=== PATIENT | male | born 1965 | race Caucasian/White ===

== ENCOUNTER 2019-02-13 12:06 | Emergency (ER) | payer BC, SELFPAY ==
[2019-02-13 12:07] VITALS: BP 111/70; PULSE 85; RESP 16; TEMP 36.1; O2SAT 100; BMI 31.1
--- NOTE | 2019-02-13 12:39 | EKG12_ITS ---
Test Reason : ABD PAIN Blood Pressure : / mmHG Vent. Rate : 073 BPM Atrial Rate : 073 BPM P-R Int : 164 ms QRS Dur : 086 ms QT Int : 378 ms P-R-T Axes : 062 -41 033 degrees QTc Int : 416 ms Normal sinus rhythm Left axis deviation Abnormal ECG Confirmed by HERB DELEON, SOTO ([id number]), greeting card editor MEE WETZEL ([id number]) on 02/16/2019 11:45:22 AM Referred By: BB Confirmed By:SOTO ESTEVEZ MD
--- NOTE | 2019-02-13 12:40 | CT_ITS ---
STUDY: CTA ABDOMEN AND PELVIS WITH CONTRAST REASON FOR EXAM: Male, 53 years old. Right-sided back pain. RADIATION DOSAGE (If Supplied By Facility): CTDIvol = ( 12.19 ) mGy, DLP = ( 219.42 ) mGycm TECHNIQUE: Transaxial images were obtained from the dome of the diaphragm to the symphysis pubis without oral contrast. 100CC IV Isovue 300 was administered. Sagittal and coronal images were reconstructed. Individualized dose optimization techniques were used for this CT. COMPARISON: None. FINDINGS: Normal abdominal aorta and branches. There is no aneurysm or dissection. There is right lower lung scarring or atelectasis with pleural calcification. The visualized portions of the heart are within normal limits. There is hepatomegaly with diffuse hepatic enlargement. Normal gallbladder and extrahepatic biliary system. Normal spleen. Normal pancreas. Normal bilateral adrenal glands. Normal right kidney. Normal left kidney. Normal visualized stomach. Normal small intestine. Normal colon. There is moderate stool. The appendix is visualized and appears normal. Normal inferior vena cava. Normal retroperitoneum. Normal urinary bladder. There are prostatic calcifications. There is a small umbilical hernia containing fat. There is degenerative and postoperative change of the spine. CT/CT ANGIO ABD&PEL W/O&W/DYE IMPRESSION: No aneurysm or dissection. No intra-abdominal mass or obstruction. Degenerative change of the spine. Electronically Signed: Harley Bermeo MD at 13:56 EDT , Service support ,
[2019-02-13 12:45] LABS: Red Blood Cells-Urine 0 SEEN /hpf (0-5)
--- NOTE | 2019-02-13 12:45 | RAD_ITS ---
STUDY: X-RAY CHEST REASON FOR EXAM: Male, 53 years old. Pain. TECHNIQUE: Single AP portable view of the chest. COMPARISON: None. FINDINGS: The lungs are clear and expanded. There is no demonstrated pleural abnormality. Normal size heart. Normal mediastinum and charlene. Normal visualized pulmonary arteries. Normal visualized aortic arch and descending thoracic aorta. There are diffuse degenerative changes of the visualized thoracic spine. Postoperative changes of the cervical spine. Normal visualized ribs, clavicles, and shoulders. There is no demonstrated abnormality of the visualized soft tissue structures of the upper abdomen. RAD/Chest 1 View (Portable) IMPRESSION: Degenerative changes, as described above. No demonstrated acute cardiopulmonary process. Electronically Signed: Harley Bermeo MD at 13:14 EDT , Service support ,
[2019-02-13 12:46] LABS: Color, Urine Yellow (Yellow); Glucose, Dipstick Normal (Normal); Leukocyte Esterase-Dipstick 25 /ul (Negative); Nitrite-Dipstick Negative (Negative); Occult Blood-Urine 25 /ul (Negative); Protein-Dipstick 15 mg/dl (Negative); Urine Bilirubin Dipstick Negative (Negative); Urine Clarity Clear (Clear); Urine Urobilinogen 1 mg/dl (Normal)
[2019-02-13 12:47] LABS: Absolute Lymphocyte Count 1.39 X10^3/uL (0.83-4.51); Absolute Neutrophil Count 6.5 X10^3/uL (2.0-7.7); Basophil# 0.01 X10^3/uL; Basophil% 0.1 % (0-1); Eosinophil# 0.02 X10^3/uL; Eosinophils% 0.2 % (0-5); Hematocrit 44.3 % (40-54); Hemoglobin 15.2 g/dL (13.0-16.5); Lymphocyte # 1.39 X10^3/ul (4.0); Lymphocyte % 15.4 % (19-41); Mean Corp Hgb Conc 34.3 g/dL (32-36); Mean Corpuscular Hgb 31.4 pg (27.0-32.0); Mean Corpuscular Volume 91.5 fL (80-94); Mean Platelet Vol. 8.4 fl (6.2-12.0); Monocyte# 1.05 X10^3/uL; Monocyte% 11.6 % (0-10); NRBC Flagged by Analyzer 0 % (0-5); Neutrophil # 6.54 X10^3/uL (2.7-7.7); Neutrophil % 72.5 % (47-70); Platelet Count 323 K/mm3 (150-450); RBC Distribution Width CV 11.9 % (11.6-14.6); RBC Distribution Width SD 39.8 fl (35.1-43.9); Red Blood Count 4.84 M/mm3 (4.6-6.2)
[2019-02-13 12:50] LABS: Ketone-Dipstick 150 mg/dl (Negative)
--- NOTE | 2019-02-13 12:51 | ED.DCSUM_ITS ---
History of Present Illness Chief Complaint: Abd Pain Informant: Patient, Significant Other Onset: Days - 2-3 Context: Gradual Onset Timing: Continuous, Waxes and wanes Quality: Achy pain Location: See below Current Severity: Severe Maximum Severity: Severe Worsened by: deep inspiration makes left flank/back hurt more Relieved by: nothing Associated Symptoms: dark urine this AM only. no nausea/vomiting. no chest pain. Narrative: Patient had very gradual onset of all of the symptoms, have gotten much worse this morning, again gradually. He states couple days ago the pain started on his right flank. Now the pain is focused on the left flank. He feels bloated/distended and no nausea or vomiting. No history of abdominal surgeries. States he had discomfort like this before, he was seen in the ER and had testing done that was negative and was told may be you passed a kidney stone. That pain resolved after 2 days spontaneously. This is becoming much worse. He has had normal bowel movements, his last one was around 2 days ago which is not unusual for him. He was urinating normally until this morning, it was dark and he states it smelled foul but he did not have dysuria or frequency. He states now the pain is mostly in the left side of his abdomen, he is in severe pain, it seems colicky, but the right side still hurts as well. No known fevers. Poor oral intake over the last couple days. Past Medical History - Allergies and Home Meds Allergies/Adverse Reactions: Allergies No Known Allergies Allergy (Verified 02/13/19 12:07) Primary Care Physician: NOT,DEFINED [NON-STAFF] - Past Medical History: None Surgical History: - - back Lives: Spouse/ Significant Other Smoking Status: Never smoker Drugs: None Review of Systems General: Reports: Malaise. Denies: Chills, Fever, Sweats Eyes: Denies: Visual changes - bilaterally, Diplopia ENT: Denies: Rhinorrhea, Sore throat Cardiovascular: Denies: Chest pain, Palpitations Respiratory: Denies: Dyspnea, Cough, Dyspnea on exertion Gastrointestinal: Reports: Abdominal pain. Denies: Nausea, Vomiting, Diarrhea, Melena, Hematochezia Genitourinary: Denies: Dysuria, Hematuria, Frequency Musculoskeletal: Reports: Back pain. Denies: Neck pain, Swelling, Extremity Pain Skin: Denies: Rash, Wounds Neurological: Denies: Headache, Weakness, Numbness Physical Exam Vital Signs/Narrative: Vital Signs Temp Pulse Resp BP Pulse Ox 02/13/19 12:07 97 F L 85 16 111/70 100 Inital Vital Signs reviewed: Yes General: Well nourished, Well developed, Acute Distress - in pain. doesn't want to lie down due to severe discomfort. Head: Normocephalic, Atraumatic Eyes: Perrl, EOMI ENT: Moist mucous membranes, No rhinorrhea Neck: Supple, Nontender Cardiovascular: Regular rate, Regular rhythm, No murmurs Respiratory: No distress, CTA bilaterally, Chest nontender Abdomen: Soft, Nontender, Hypoactive bowel sounds. Negative for: Nondistended - +mildly distended, Pulsatile mass Back: Normal Inspection, CVA tenderness - left only; no other tenderness Extremities: Nontender, No edema Skin: Normal color, No rash, No Trauma Neurological: Alert, Oriented x3, Cranial nerves II-XII grossly intact, Normal Strength, Normal Sensation Psychological: Normal Mood, - - anxious Diagnostic/Tx/Re-eval Impressions Abdomen/Pelvis CTA 02/13/19 12:40 IMPRESSION: No aneurysm or dissection. No intra-abdominal mass or obstruction. Degenerative change of the spine. Electronically Signed: Harley Bermeo MD at 13:56 EDT , Service support , Chest X-Ray 02/13/19 12:45 IMPRESSION: Degenerative changes, as described above. No demonstrated acute cardiopulmonary process. Electronically Signed: Harley Bermeo MD at 13:14 EDT , Service support , 02/13/19 12:40 CT ANGIO ABD&PEL W/O&W/DYE [CT] Stat 02/13/19 12:45 Chest 1 View (Portable) [RAD] Stat Laboratory Results 02/13/19 02/13/19 02/13/19 12:30 12:30 12:30 WBC 9.0 RBC 4.84 Hgb 15.2 Hct 44.3 MCV 91.5 MCH 31.4 MCHC 34.3 RDW Std Deviation 39.8 RDW Coeff of Devang 11.9 Plt Count 323 MPV 8.4 Immature Gran % (Auto) 0.200 Neut % (Auto) 72.5 H Lymph % (Auto) 15.4 L Summers % (Auto) 11.6 H Eos % (Auto) 0.2 Baso % (Auto) 0.1 Absolute Neuts (auto) 6.5 Absolute Lymphs (auto) 1.39 Nucleated RBC % 0 Sodium 136 Potassium 3.8 Chloride 102 Carbon Dioxide 25.0 Anion Gap 9 BUN 14 Creatinine 0.99 Estim Creat Clear Calc 93.63 Est GFR (MDRD) Af Amer 101 Est GFR (MDRD) Non-Af 83 BUN/Creatinine Ratio 14.1 Glucose 101 Lactic Acid Calcium 9.6 Total Bilirubin 0.80 AST 23 ALT 23 Alkaline Phosphatase 56 Troponin I < 0.015 Total Protein 8.8 H Albumin 3.6 Globulin 5.2 H Albumin/Globulin Ratio 0.7 L Lipase 53 L Urine Color Yellow Urine Clarity Clear Urine pH 8.0 Ur Specific [place] 1.010 Urine Protein 15 H Urine Glucose (UA) Normal Urine Ketones 150 H Urine Occult Blood 25 H Urine Nitrite Negative Urine Bilirubin Negative Urine Urobilinogen 1 H Ur Leukocyte Esterase 25 H Urine RBC 0 SEEN Urine WBC 0-5 SEEN Ur Squamous Epith Cells 0-5 SEEN Urine Bacteria 1+ Urine Mucus 1+ 02/13/19 13:12 WBC RBC Hgb Hct MCV MCH MCHC RDW Std Deviation RDW Coeff of Devang Plt Count MPV Immature Gran % (Auto) Neut % (Auto) Lymph % (Auto) Summers % (Auto) Eos % (Auto) Baso % (Auto) Absolute Neuts (auto) Absolute Lymphs (auto) Nucleated RBC % Sodium Potassium Chloride Carbon Dioxide Anion Gap BUN Creatinine Estim Creat Clear Calc Est GFR (MDRD) Af Amer Est GFR (MDRD) Non-Af BUN/Creatinine Ratio Glucose Lactic Acid 1.8 Calcium Total Bilirubin AST ALT Alkaline Phosphatase Troponin I Total Protein Albumin Globulin Albumin/Globulin Ratio Lipase Urine Color Urine Clarity Urine pH Ur Specific [place] Urine Protein Urine Glucose (UA) Urine Ketones Urine Occult Blood Urine Nitrite Urine Bilirubin Urine Urobilinogen Ur Leukocyte Esterase Urine RBC Urine WBC Ur Squamous Epith Cells Urine Bacteria Urine Mucus - Rhythm Strip Rhythm Strip: Sinus Rhythm Rate: 75 Ectopy: None - EKG Initial EKG Interpretation: Sinus Rhythm, No Acute Injury Pattern, - - Left axis Prior: No Prior - Medical Decision Making Patient was extremely uncomfortable. Differential included kidney stone, mesenteric ischemia given his benign abdominal exam, bowel obstruction, and other causes of intestinal pain. The work-up is very unremarkable but he is very uncomfortable. I discussed with the radiologist, and we reviewed his imaging in more detail. It does not appear he has any signs of hydroureter or hydronephrosis, and although contrast was used, no obvious uroliths. It does appear, however, that his colon is full of stool, which of course is not necessarily abnormal. However, I think that is what is causing his pain. In further questioning and discussion with the patient at length, he initially stated that having his last bowel movement 2 or 3 days ago is not necessarily unusual for him, but clarification shows that he usually goes daily like clockwork but he has gone 2 or 3 days without them in the past. I think he is having colonic spasms causing his pain in his back, bloating in his abdomen, and trouble taking a deep breath as a result. Furthermore, he has no symptoms of discomfort radiating down his legs to suggest a cord process. We discussed an enema. He attempted to have a bowel movement on his own first, he was unable, but states that he feels like he needs to go, but cannot. He was amenable to an enema. This did enable him to get some stool out, and he definitely felt a difference. Therefore I suggest further constipation treatments. He does not want more enemas here and is comfortable going home although he is still having some pain. He was given Bentyl and half bottle of magnesium citrate prior to discharge, along with the rest of the bottle, encouragement to drink plenty fluids, and use Colace and MiraLAX, enemas prn. They are comfortable with this overall plan of follow-up, encouraged to return if worse. ED Disposition - Plan for ED Patient: Disposition: Home or Assisted Living Diagnosis: Constipation, Back pain Instructions: CONSTIPATION (Adult) Prescriptions: Dicyclomine HCl [Bentyl] 10 - 20 mg PO Q6H PRN #20 cap PRN Reason: Abdominal cramping Prescription Printed Referrals: Doctor,Your [STAFF PHYSICIAN] - 3-5 Days if not improving Additional Instructions: Use MiraLAX, 1 capful dissolved in any liquid daily, in addition to docusate sodium 100 mg capsule, 1 capsule twice daily for stool softening. Drink plenty of fluids. If the initial dose in the ER of magnesium citrate does not result in a bowel movement within 12-24 hours, you may repeat 24 hours after the first dose.
[2019-02-13 12:58] LABS: Bacteria 1+ /hpf (None Seen); Mucous, Urine 1+ /hpf (<or=2+); Squamous Epithelial Cells - UA 0-5 SEEN /hpf (0-5); White Blood Cells 0-5 SEEN /hpf (0-5)
[2019-02-13 13:01] LABS: ALB/GLOB Ratio 0.7 RATIO (0.9-2.4); AST(SGOT) 23 U/L (15-37); Alanine Aminotransfer ALT/SGPT 23 U/L (16-61); Albumin, Serum 3.6 g/dL (3.2-5.0); Alkaline Phosphatase 56 U/L (45-117); Anion Gap 9 (5-15); BUN 14 mg/dL (7-18); BUN/Creat Ratio 14.1 RATIO (10-20); Calcium,Total 9.6 mg/dL (8.5-10.1); Chloride 102 mmol/L (98-107); Creatinine, Serum 0.99 mg/dL (0.70-1.30); EST Glomerular Filtration Rate 83 mL/min (>60); Est Glom Filt Rate - Afr Amer 101 mL/min (>60); Estimated Creatinine Clearance 93.63 ml/min; Globulin 5.2 g/dL (2.2-4.2); Glucose 101 mg/dL (74-106); Lipase 53 U/L (73-393); Potassium 3.8 mmol/L (3.5-5.1); Protein, Total 8.8 g/dL (6.4-8.2); Sodium Level 136 mmol/L (136-145)
[2019-02-13] MEDS: Morphine 4 MG/ML Syringe IV (13:01)
[2019-02-13] MEDS: Ketorolac 15 MG/ML Vial IV (13:01)
[2019-02-13 13:44] LABS: Lactic Acid 1.8 mmol/L (0.4-2.0)
[2019-02-13] MEDS: HYDROmorphone 1 MG/ML Syringe IV (14:03)
[2019-02-13 14:05] VITALS: BP 119/70; PULSE 76; RESP 22; O2SAT 100
[2019-02-13] MEDS: Fleet Enema 1 ML RECTAL (15:15)
[2019-02-13] MEDS: Dicyclomine 10 MG Capsule 20 MG PO (16:42)
[2019-02-13] MEDS: Magnesium Citrate 300 ML 150 ML PO (16:42)
[2019-02-13 16:54] VITALS: PULSE 74; RESP 17; O2SAT 100
== END 2019-02-13 16:56 | disposition home or self-care (01) ==
PROVIDERS: Emergency Provider Emergency Medicine
DX: K59.00 Constipation, unspecified (principal); M54.9 Dorsalgia, unspecified
CPT/HCPCS: 71045; 74174; 80053; 81001; 83605; 83690; 84484; 85025; 93005; 96361; 96374; 96375; 99285; J7030; Q9967; A4216

== ENCOUNTER → 2019-03-17 09:27 | Outpatient (CLI) | payer BC, SELFPAY ==
[2019-03-17 08:31] VITALS: BMI 31.3
[2019-03-17 12:59] LABS: Cholesterol 209 mg/dL (200); High Density Lipoprotein 67 mg/dL; PSA,Total - Annual Screen 1.01 ng/mL (0.00-4.00); Triglycerides 60 mg/dL; Very Low Density Lipoprotein 12 mg/dL (5-40)
== END ==
PROVIDERS: PCP Internal Medicine; Visit Provider Internal Medicine
DX: Z00.00 Encounter for general adult medical examination without abnormal findings (principal)
CPT/HCPCS: 36415; 80061; 84153; G0103

== ENCOUNTER → 2020-05-31 10:28 | Outpatient (CLI) | payer BC, SELFPAY ==
[2020-05-31 09:35] VITALS: BMI 30.2
[2020-05-31 12:12] LABS: Absolute Lymphocyte Count 1.21 X10^3/uL (0.83-4.51); Basophil# 0.03 X10^3/uL; Basophil% 0.5 % (0-1); Eosinophil# 0.09 X10^3/uL; Eosinophils% 1.5 % (0-5); Hematocrit 53.2 % (40-54); Hemoglobin 17.4 g/dL (13.0-16.5); Lymphocyte # 1.21 X10^3/ul (4.0); Lymphocyte % 19.8 % (19-41); Mean Corp Hgb Conc 32.7 g/dL (32-36); Mean Corpuscular Hgb 30.2 pg (27.0-32.0); Mean Corpuscular Volume 92.4 fL (80-94); Mean Platelet Vol. 8.6 fl (6.2-12.0); Monocyte# 0.77 X10^3/uL; Monocyte% 12.6 % (0-10); NRBC Flagged by Analyzer 0 % (0-5); Neutrophil # 3.99 X10^3/uL (2.7-7.7); Neutrophil % 65.4 % (47-70); Platelet Count 292 K/mm3 (150-450); RBC Distribution Width CV 13.2 % (11.6-14.6); RBC Distribution Width SD 44.7 fl (35.1-43.9); Red Blood Count 5.76 M/mm3 (4.6-6.2); White Blood Count 6.1 K/mm3 (4.4-11.0)
[2020-05-31 12:41] LABS: ALB/GLOB Ratio 0.9 RATIO (0.9-2.4); AST(SGOT) 25 U/L (15-37); Alanine Aminotransfer ALT/SGPT 33 U/L (16-61); Albumin, Serum 3.7 g/dL (3.2-5.0); Alkaline Phosphatase 49 U/L (45-117); Anion Gap 6 (5-15); BUN 11 mg/dL (7-18); BUN/Creat Ratio 12.3 RATIO (10-20); Chloride 104 mmol/L (98-107); Cholesterol 206 mg/dL (200); Creatinine, Serum 0.89 mg/dL (0.70-1.30); EST Glomerular Filtration Rate 94 mL/min (>60); Est Glom Filt Rate - Afr Amer 113 mL/min (>60); Glucose 92 mg/dL (74-106); High Density Lipoprotein 55 mg/dL; Potassium 3.6 mmol/L (3.5-5.1); Protein, Total 7.7 g/dL (6.4-8.2); Sodium Level 137 mmol/L (136-145); Triglycerides 85 mg/dL; Very Low Density Lipoprotein 17 mg/dL (5-40)
== END ==
PROVIDERS: PCP Internal Medicine; Referring Provider Internal Medicine; Visit Provider Internal Medicine
DX: Z00.00 Encounter for general adult medical examination without abnormal findings (principal)
CPT/HCPCS: 36415; 80053; 80061; 85025

== ENCOUNTER → 2020-06-28 12:17 | Outpatient (CLI) | payer BC, SELFPAY ==
[2020-05-31 09:35] VITALS: BMI 30.2
[2020-06-28 15:20] LABS: Hematocrit 52.7 % (40-54); Hemoglobin 17.6 g/dL (13.0-16.5)
[2020-06-28 15:40] LABS: PSA,Total- Diagnostic 1.41 ng/mL (0.0-4.0)
== END ==
PROVIDERS: PCP Internal Medicine; Referring Provider Urology; Visit Provider Urology
DX: E29.1 Testicular hypofunction (principal); R35.1 Nocturia
CPT/HCPCS: 36415; 84153; 84403; 85014; 85018

== ENCOUNTER → 2025-06-14 | Outpatient (CLI) | payer BC, SELFPAY ==
--- NOTE | 2025-06-14 06:40 | MRI_ITS ---
PROCEDURE: SPINE LUMBAR W/WO CONTRAST 06/14/2025 REASON FOR EXAM: PAIN X 20YEARS, HX OF DISCECTOMY, LEFT RADICULOPATHY TECHNIQUE: Procedure Code: [id number] Modality: MR Procedure: SPINE LUMBAR W/WO CONTRAST Multiplanar and multisequence images were obtained without and with intravenous gadolinium-based contrast administration. CONTRAST: Clariscan VOLUME: 17 mL COMPARISON: April 08, 2025, May 17, 2025. MRI report unavailable for review. FINDINGS: Vertebrae: No fracture seen. Bone marrow edema is seen at the opposing endplates posteriorly at T12/L1, and the opposing endplates of L3 and L4. Fatty marrow changes and sclerosis is also seen at L3/4 and to a greater extent L4/5. Alignment: Straightened Conus Medullaris: Terminates at T12/L1. Normal signal. T12-L1: Diffuse disc protrusion is present and slightly more prominent left paracentral and left sub foraminal where there is an element of annular tearing. Mild thickening of ligamentum flavum and mild facet hypertrophy. Central canal at this level is borderline stenotic at 10 mm AP. Conus medullaris is at this level and there is partial effacement of the anterior thecal sac without compression of the conus, but scant CSF is present around the conus. Borderline exit foraminal narrowing on the left. Correlate with left T12 radiculopathy and any symptoms of cauda equina. L1-2: Mild thickening of ligamentum flavum. L2-3: Severe, diffuse disc bulge ispresent and also associated with a focal disc extrusion that is directed cephalad posterior to the L2 vertebral body; this is located centrally, left paracentrally and left sub foraminal. The disc measures 1.3 x 0.8 x 1.4 cm. This creates a significant extradural defect deforming the thecal sac posterior to the L2 vertebral body. The central canal at this level is stenotic to 5 mm AP. This has mass effect on the traversing nerve roots. Mild left facet hypertrophy. Moderate right facet hypertrophy. Bilateral facet joint effusions. Additionally, there is facet joint edema/synovitis on the right with some enhancement. The exiting left L2 nerve root on the left is minimally compromised by the hypertrophic facets. L3-4: Severe loss of disc height with disc desiccation. Diffuse disc osteophyte protrusion is mild. Moderate facet hypertrophy. Postsurgical changes. Central canal is not stenotic. Right exit foramen is narrowed from a combination of disc osteophyte and facet disease. Correlate with right L3 radiculopathy. L4-5: [id number] loss of disc height with disc desiccation. Diffuse disc osteophyte protrusion is seen at this level. [id number] facet hypertrophy. Central canal is not stenotic. Bilateral exit foramina are narrowed from a combination of disc osteophyte and facet disease. Correlate with bilateral L4 radiculopathy. Postsurgical change. L5-S1: Mild loss of disc height. Minimal, diffuse disc bulge. Mild facet hypertrophy. The L5 nerve root on the left is positioned high in the foramen and is also contacted by the disc osteophyte and facet disease from the level above. Correlate with left L5 radiculopathy; the right exit foramen is clear. Sacrum: Unremarkable Postcontrast images: No enhancing mass. Enhancement of the L2/3 facets mainly on the right. MRI/Spine Lumbar W/WO Contrast IMPRESSION: 1. Postsurgical change lower lumbar spine. 2. Multilevel degenerative disc disease as outlined above with areas of centra l stenosis and multilevel exit foraminal narrowing compromising multiple exiting and traversing nerve roots. Focal disc extrusion L2/3. See above description. 3. Edema, enhancement L2/3 facets on the right. Consider degenerative change, edema, synovitis. 4. Mild stenosis of the central canal of the level of the conus medullaris. N o abnormal signal in the cord. As a conservative measure correlate with any features of cauda equina syndrome. The findings and impression of this report were called directly to the office a t 10 a.m. Eastern standard time. Information was relayed to Liliana Xiong. She was to share the information with the ordering ph ysician, Dr. Penny who was unavailable at the time. Reading Location: [id number]
--- OUTSIDE RECORDS SUMMARY | 2025-06-14 07:02 | XMS RPT_ITS | CCD ---
Author Organization [facility] Inform ion Partnership [employer] [facility] Care Team Providers Care Farm Or [employer] Animal Caretaker Name Role Phone Caleb Alfredo II Unavailable Unavailable Pending Provider Unavailable Unavailable Pending Provider Unavailable Unavailable Unavailable Unavailable Pending, Provider Primary Care Unavailable MD CALEB ALFREDO Attending Unavailabl e MD CALEB ALFREDO Referring Unavailabl e Pending, Provider Primary Care Unavailable MD CALEB ALFREDO Attending Unavailabl e MD CALEB ALFREDO Referring Unavailabl e Unavailable Primary Care Provider Unavailabl e Unavailable Primary Care Provider UnavailBEREKET Rush Attending Unavailable ALFREDOCALEB Attending Unavailable ALFREDO, CALEB Duggan Admitting Unavailable ALFREDO, CALEB Duggan Primary Care Unavailable ALFREDO, CALEB Duggan Attending Unavailable FERNANDA BRAND Primary Care Unavailable FERNANDA BRAND Attending Unavailable FERNANDA BRAND Admitting Unavailable ALFREDO, CALEB W Admitting Unavailable ALFREDO, CALEB Duggan Primary Care Unavailable ALFREDO, CALEB Duggan Attending Unavailable FERNANDA BRAND Primary Care Unavailable FERNANDA BRAND Attending Unavailable FERNANDA BRAND Admitting Unavailable FERNANDA BRAND Primary Care Unavailable FERNANDA BRAND Attending Unavailable FERNANDA BRAND Admitting Unavailable Elver Riley Attending Unavailable Oleghe, Efewongbe Referring Unavailable Oleghe, Efewongbe Primary Care Unavailable Medications Current Medications Medication Drug Class(es) Dates Sig (Normalized) Sig (Original) BD Luer-Claudia Syringe 3 mL 22 x 1 1/2 syringe (2 sources) Start: 08-26-2023 BD Luer-Claudia Syringe 3 mL 22 x 1 1/2 syringe Indications: Hypogonadism in male Inject 1 vial into the muscle 1 (one) time per week. PER DIRECTED FOR IM TESTOSTERONE INJECTIONS 4 each 11 08/26/2023 Active Start: 10-18-2023 BD Luer-Claudia Sy ringe 3 mL 22 x 1 1/2 syringe Indications: Hypogonadism in male Inject 1 vial into the muscle 1 (one) time per week. PER DIRECTED FOR IM TESTOSTERONE INJECTIONS 4 each 11 04/10/2023 Active BD SafetyGlide Syringe 3 mL 22 x 1 1/2 syringe (2 sources) Start: 01-07-2025 BD SafetyGlide Syringe 3 mL 22 x 1 1/2 syringe Indications: Hypogonadism in male Use as directed for IM testosteron injections 4 each 11 01/07/2025 Active Start: 10-13-2024 BD SafetyGlide Syringe 3 mL 22 x 1 1/2 syringe Indications: Hypogonadism in male USE 1 SYRINGE ONCE A WEEK DIRECTED FOR INTRAMUSCULARLY TESTOSTERONE INJECTIONS 4 each 10/13/2024 Active sildenafil 100 mg oral tablet (20 sources) Phosphodiesterase 5 Inhibitor Start: 01-25-2025 take 1 tablet by mouth once daily as needed sildenafil (Viagra) 100 mg tablet Indications: Erectile dysfunction, unspecified erectile dysfunction type Take 1 tablet (100 mg) by mouth once daily as needed for erectile dysfunction. 30 tablet 11 01/25/2025 Active Start: 08-08-2023 End: 01-25-2025 take 1 tablet by mouth once daily as needed sildenafil (Viagra) 100 mg tablet Indications: Erectile dysfunction, unspecified erectile dysfunction type Take 1 tablet (100 mg) by mouth once daily as needed for erectile dysfunction. 30 tablet 11 08/08/2023 01/25/2025 Discontinued (Reorder) Start: 06-04-2023 take 1 tablet by ramona th once daily as needed sildenafil (Viagra) 100 mg tablet Indications: Erectile dysfunction, unspecified erectile dysfunction type TAKE 1 TABLET BY MOUTH ONCE DAILY NEEDED FOR ERECTILE DYSFUNCTION 30 tablet 0 06/04/2023 Active Start: 12-28-2019 take 1 tablet by ramona th once daily as needed Sildenafil Citrate 100 MG Oral Tablet Take 1 tab PO daily PRN for erectile dysfuction Quantity: 30 Refills: 6 Ordered: 03-Apr-2022 Caleb Alfredo II, MD Start : 28-Dec-2019 Active 1 ml testosterone cypionate 200 mg/ml injection (20 sources) Androgen Start: 01-25-2025 testosterone c ypionate (Depo-Testosterone) 200 mg/mL injection Indications: Hypogonadism in male Inject 1 mL (200 mg) into the muscle 1 (one) time per week. 4 mL 5 01/25/2025 Active Start: 11-15-2024 End: 01-25-2025 testosterone cypionate (Depo-Testosterone) 200 mg/mL injection Indications: Hypogonadism in male Inject 1 mL (200 mg) into the muscle 1 (one) time per week. 4 mL 5 11/15/2024 01/25/2025 Discontinued (Reorder) Start: 03-01-2024 inject 1 mL by intra muscular injection every week testosterone cypionate (Depo-Testosterone) 200 mg/mL injection Indications: Hypogonadism in male INJECT 1 ML INTRAMUSCULARLY ONCE A WEEK DIRECTED 4 mL 5 03/01/2024 Active Start: 06-11-2023 End: 07-29-2024 inject 4 mL by intramuscular injection every month testosterone cypionate (Depo-Testosterone) 200 mg/mL injection Indications: Hypogonadism in male INJECT 4 ML INTRAMUSCULARLY MONTHLY DIRECTED 4 mL 07/11/2023 07/29/2024 Discontinued (Med List Cleanup) Start: 06-11-2023 testosterone c ypionate (Depo-Testosterone) 200 mg/mL injection Indications: Hypogonadism in male Inject 1 mL (200 mg) into the muscle 1 (one) time per week. MONTHLY PER DIRECTED 4 mL 5 06/11/2023 Active Start: 01-02-2023 inject 100 mg by sub cutaneous injection every week Xyosted 100 MG/0.5ML Subcutaneous Solution Auto-injector INJECT 100 MG Weekly Quantity: 4 Refills: 5 Ordered: 02-Jan-2023 Caleb Alfredo II, MD Start : 02-Jan-2023 Active Start: 01-02-2021 inject 1 mL by intra muscular injection every week Testosterone Cypionate 200 MG/ML Intramuscular Solution INJECT 1ML IM Q WEEKLY Quantity: 12 Refills: 1 Ordered: 02-Apr-2022 Caleb Alfredo II, MD Start : 02-Jan-2021 Active Start: 01-02-2021 inject 1 mL by intra muscular injection every week Testosterone Cypionate 200 MG/ML Intramuscular Solution INJECT 1ML IM Q WEEKLY Quantity: 4 Refills: 5 Ordered: 03-Jul-2021 Caleb Alfredo II, MD Start : 02-Jan-2021 Active Start: 11-23-2019 inject 4 mL by intra muscular injection every month Testosterone Cypionate 200 MG/ML Intramuscular Solution INJECT 4 ML Other inject IM monthly Quantity: 4 Refills: 5 Ordered: 04-Jul-2022 Caleb Alfredo II, MD Start : 23-Nov-2019 Active Start: 11-23-2019 inject 4 mL by intra muscular injection every month Testosterone Cypionate 200 MG/ML Intramuscular Solution INJECT 4 ML Other inject IM monthly Quantity: 4 Refills: 5 Ordered: 02-Jan-2021 Caleb Alfredo II, MD Start : 23-Nov-2019 Active Start: 11-23-2019 Testosterone C ypionate 200 MG/ML Intramuscular Solution INJECT 2 ML Other Quantity: 1 Refills: 3 Caleb Alfredo II, MD Start : 23-Nov-2019 Active Start: 05-18-2019 Testosterone C ypionate 200 MG/ML Intramuscular Solution 1mL qweeky for testosterone inj Quantity: 4 Refills: 2 Ordered: 09-May-2020 Caleb Alfredo II, MD Start : 18-May-2019 Active Completed/Discontinued Medications Medication Drug Class(es) Dates Sig (Normalized) Sig (Original) BD Disp [place] 21G X 1-1/2 (2 sources) Start: 12-31-2019 BD Disp [place] 21G X 1-1/2 USE DIRECTED FOR IM TESTOSTERONE INJECTIONS Quantity: 4 Refills: 11 Caleb Alfredo II, MD Start : 31-Dec-2019 Active Start: 12-29-2019 BD Disp Needle s 21G X 1-1/2 Use for monthly IM testosterone injection Quantity: 6 Refills: 2 Caleb Alfredo II, MD Start : 29-Dec-2019 Active Problems Active Problems Problem Classification Problem Date Documented Da te Episodic/Chronic Anxiety disorders (4 sources) Other specified anxiety disorders; Translations: [Other specified anxiety disorders] Onset: 04-08-2025 Chronic Hyperplasia of prostate (8 sources) Benign prostatic hypertrophy with outflow obstruction; Translations: [Benign prostatic hyperplasia with lower urinary tract symptoms] Onset: 07-17-2023 07-17-2023 Chronic Other diseases of kidney and ureters (2 sources) Other obstructive and reflux uropathy; Translations: [Other obstructive and reflux uropathy] Onset: 07-17-2023 Episodic Other endocrine disorders (20 sources) Male hypogonadism; Translations: [Other testicular hypofunction] Onset: 04-08-2023 07-16-2023 Chronic Other endocrine disorders (2 sources) Testicular hypofunction; Translations: [Testicular hypofunction] Onset: 04-08-2023 Chronic Other male genital disorders (2 sources) Impotence; Translations: [Erectile dysfunction] Chronic Other male genital disorders (20 sources) Male erectile dysfunction, unspecified; Translations: [Erectile dysfunction] Onset: 04-08-2023 07-16-2023 Chronic Other nutritional; endocrine; and metabolic disorders (1 source) Overweight; Translations: [Overweight] Onset: 04-08-2025 Episodic Other nutritional; endocrine; and metabolic disorders (1 source) Body mass index (BMI) 29.0-29.9, adult; Translations: [Body mass index [BMI] 29.0-29.9, adult] Onset: 04-08-2025 Episodic Spondylosis; intervertebral disc disorders; other back problems (4 sources) Spinal stenosis, lumbosacral region; Translations: [Spinal stenosis, lumbosacral region] Onset: 04-08-2025 Episodic Thyroid disorders (1 source) Hypothyroidism, unspecified; Translations: [Hypothyroidism, unspecified] Onset: 04-20-2025 Chronic Past or Other Problems Problem Classification Problem Date Documented Da te Episodic/Chronic Genitourinary symptoms and ill-defined conditions (20 sources) Nocturia; Translations: [Nocturia] Onset: 04-08-2023 07-16-2023 Episodic Hemorrhoids (12 sources) Hemorrhoids; Translations: [Unspecified hemorrhoids without mention of complication] Onset: 04-08-2023 04-08-2023 Episodic Unclassified (2 sources) Onset: 01-15-2024 01-15-2024 NEGATED: Highlighted row has not occurred!Residual codes; unclassified (6 sources) Disease Episodic Results Test Name Value Interpretation Reference Range Facility CBC + DIFFon 04-08-2025 Baso # 0.02 x10EE3/UL Normal 0.00 - 0.10 [facility] Comment on above: Performed By: #### 2 [id number] #### [facility],[address] [place] [address] 70425 Basophils/100 WBC (Bld) 0.3 % Normal 0.0 - 2.0 [facility] Comment on above: Performed By: #### 2 83080 #### [facility],[address] [place] [address] 13774 CBC + DIFF Normal [facility] Comment on above: Result Comment: CBC- COMPLETE BLOOD COUNT Performed By: #### 2 53514 #### [facility],[address] [place] [address] 67714 EO # 0.18 x10EE3/UL Normal 0.00 - 0.50 [facility] Comment on above: Performed By: #### 2 74719 #### [facility],[address] [place] [address] 00051 Eosinophils/100 WBC (Bld) 2.5 % Normal 0.0 - 7.0 [facility] Comment on above: Performed By: #### 2 49194 #### [facility],[address] [place] [address] 80620 Erythrocyte distribution width (RBC) [Ratio] 13.5 % Normal 12.0 - 15.6 [facility] Comment on above: Performed By: #### 2 65072 #### [facility],[address] [place] [address] 27951 Hematocrit (Bld) [Volume fraction] 51.1 % Normal 40.0 - 52.0 [facility] Comment on above: Performed By: #### 2 02128 #### [facility],[address] [place] [address] 18463 Hemoglobin (Bld) [Mass/Vol] 17.2 g/dL Normal 13.0 - 17.5 [facility] Comment on above: Performed By: #### 2 28667 #### [facility],[address] [place] [address] 76809 Lymph # 1.42 x10EE3/UL Normal 0.80 - 2.80 [facility] Comment on above: Performed By: #### 2 82481 #### [facility],[address] [place] [address] 13274 Lymphocytes/100 WBC (Bld) 19.7 % Low 20.0 - 45.0 [facility] Comment on above: Performed By: #### 2 53462 #### [facility],[address] [place] [address] MANUAL DIFF N/A Normal [facility] Comment on above: Performed By: #### 2 77957 #### [facility],[address] [place] [address] MCH (RBC) [Entitic mass] 32 pg Normal 27 - 33 [facility] Comment on above: Performed By: #### 2 11116 #### [facility],[address] [place] [address] MCHC 34 X10 3 Normal 32 - 36 [facility] Comment on above: Performed By: #### 2 60509 #### [facility],[address] [place] [address] MCV (RBC) [Entitic vol] 94 fL Normal 81 - 98 [facility] Comment on above: Performed By: #### 2 78278 #### [facility],[address] [place] [address] [place] # 0.69 x10EE3/UL Normal 0.20 - 1.00 [facility] Comment on above: Performed By: #### 2 46246 #### [facility],[address] [place] [address] MONOS % 9.5 % Normal 0.0 - 10.0 [facility] Comment on above: Performed By: #### 2 36758 #### [facility],[address] [place] [address] Morphology Odilon (Bld) [Interp] N/A Normal [facility] Comment on above: Performed By: #### 2 21570 #### [facility],[address] [place] [address] Neut # 4.91 x10EE3/UL Normal 1.50 - 7.10 [facility] Comment on above: Performed By: #### 2 23594 #### [facility],[address] [place] [address] 51594 Neutrophils/100 WBC (Bld) 68.1 % Normal 46.0 - 76.0 [facility] Comment on above: Performed By: #### 2 44299 #### [facility],[address] [place] [address] 12094 PLATELET 250 x10EE3/UL Normal 150 - 450 [facility] Comment on above: Performed By: #### 2 89513 #### [facility],[address] [place] [address] 12440 Platelet mean volume (Bld) [Entitic vol] 6.7 fL Normal 6.4 - 10.5 [facility] Comment on above: Result Comment: AUTO MATED DIFFERENTIAL Performed By: #### 2 35996 #### [facility],[address] [place] [address] 08778 RBC 5.43 x 10EE6/UL Normal 4.50 - 6.00 [facility] Comment on above: Performed By: #### 2 54318 #### [facility],[address] [place] [address] 39327 WBC 7.2 x 10EE3/UL Normal 4.5 - 10.8 [facility] Comment on above: Performed By: #### 2 79670 #### [facility],[address] [place] [address] 84621 CMP with eGFRon 04-08-2025 AGE 59 years Normal [facility] Comment on above: Performed By: #### 2 51415 #### [facility],[address] [place] [address] 65956 Albumin [Mass/Vol] 3.7 g/dL Normal 3.4 - 5.0 [facility] Comment on above: Performed By: #### 2 77785 #### [facility],[address] [place] [address] 18874 Albumin/Globulin [Mass ratio] 1.2 {ratio} Normal 0.9 - 1.6 [facility] Comment on above: Performed By: #### 2 62181 #### [facility],[address] [place] [address] 15767 ALK PHOS 41 U/L Low 46 - 116 [facility] Comment on above: Performed By: #### 2 92265 #### [facility],[address] [place] [address] 94413 ALT [Catalytic activity/Vol] 32 U/L Normal 16 - 63 [facility] Comment on above: Performed By: #### 2 97924 #### [facility],[address] [place] [address] 01983 Anion gap [Moles/Vol] 10 mmol/L Normal 10 - 20 [facility] Comment on above: Performed By: #### 2 43766 #### [facility],[address] [place] [address] 86967 AST [Catalytic activity/Vol] 27 U/L Normal 15 - 37 [facility] Comment on above: Performed By: #### 2 69719 #### [facility],[address] [place] [address] 66659 B/C RATIO 22 ratio Normal 0 - 30 [facility] Comment on above: Performed By: #### 2 86942 #### [facility],[address] [place] [address] 46471 Bilirubin [Mass/Vol] 0.4 mg/dL Normal 0.2 - 1.0 [facility] Comment on above: Performed By: #### 2 83778 #### [facility],[address] [place] [address] 21511 Calcium [Mass/Vol] 8.9 mg/dL Normal 8.5 - 10.1 [facility] Comment on above: Performed By: #### 2 92125 #### [facility],[address] [place] [address] 34679 Chloride [Moles/Vol] 102 mmol/L Normal 98 - 107 [facility] Comment on above: Performed By: #### 2 93656 #### [facility],[address] [place] [address] 05508 CMP with eGFR Normal [facility] Comment on above: Result Comment: COMP REHENSIVE METABOLIC PANEL Performed By: #### 2 57110 #### [facility],[address] [place] [address] 72033 CO2 [Moles/Vol] 30.1 mmol/L Normal 21.0 - 32.0 [facility] Comment on above: Performed By: #### 2 31474 #### [facility],[address] [place] [address] Creatinine [Mass/Vol] 0.77 mg/dL Normal 0.70 - 1.30 [facility] Comment on above: Performed By: #### 2 44948 #### [facility],[address] [place] [address] GFR/1.73 sq M.predicted among non-blacks MDRD (S/P/Bld) [Vol rate/Area] mL/min/{1.73_m2} Normal 60 - 999 [facility] Comment on above: Performed By: #### 2 06641 #### [facility],[address] [place] [address] Result Comment: ACCO RDING TO THE NATIONAL KIDNEY DISEASE EDUCATION PROGRAM(NKDE), A NORMAL eGFR IS A VALUE GREATER THAN OR EQUAL TO 60 ML/MIN/1.73 SQ METERS. CHRONIC KIDNEY DISEASE: <60mL/MIN/1.73 SQ METERS KIDNEY FAILURE: <15mL/MIN/1.73 SQ METERS THIS TEST SHOULD ONLY BE USED FOR PATIENTS 18 YEARS OF AGE AND OLDER. Globulin (S) [Mass/Vol] 3.0 g/dL Normal 1.5 - 3.8 [facility] Comment on above: Performed By: #### 2 32617 #### [facility],[address] [place], [place] [id number] Glucose [Mass/Vol] 97 mg/dL Normal 74 - 106 [facility] Comment on above: Performed By: #### 2 21687 #### [facility],[address] [place] [address] 23139 Potassium [Moles/Vol] 4.0 mmol/L Normal 3.5 - 5.1 [facility] Comment on above: Performed By: #### 2 99170 #### [facility],[address] [place] [address] 93707 Protein [Mass/Vol] 6.7 g/dL Normal 6.4 - 8.2 [facility] Comment on above: Performed By: #### 2 30710 #### [facility],[address] [place] [address] 29226 Sodium [Moles/Vol] 138 mmol/L Normal 136 - 145 [facility] Comment on above: Performed By: #### 2 82686 #### [facility],[address] [place] [address] 03201 Urea nitrogen [Mass/Vol] 17 mg/dL Normal 7 - 18 [facility] Comment on above: Performed By: #### 2 77549 #### [facility],[address] [place] [address] 20629 HIP BILAT 2+ VIEWS W/AP PELV Shelli 04-08-2025 HIP BILAT 2+ VIEWS W/AP PELVIS [address] ? [place] [address] ? Patient: MOISES BARNEY Phone#: : 1965 Age: 59 Gender: M Pt. Type: Out Account: [id number] Location: 052 Ordering: FERNADNA BRAND Exam Date: 04/08/2025/11:04 Family Phys: Charge Code: [id number] Physician: Chase Order #: [id number] Dose#: PROCEDURE: X-RAY HIP BILAT MIN 2 VIEWS W/AP PELVIS COMPARISON: None. INDICATIONS: SPINAL STENOSIS; LUMBOSACRAL REGION FINDINGS: BONES: Degenerative changes of the lower lumbar spine. Right femoral head is normal in contour and seated in the acetabulum. Joint space is maintained. Left femoral head is normal in contour and seated in the acetabulum. There is spurring of the left superior acetabular rim. SOFT TISSUES: Negative. No visible soft tissue swelling. EFFUSION: None visible. OTHER: Negative. CONCLUSION: 1. Degenerative spurring of the left superior acetabular rim. Dictated by: Prema Hunt MD on 04/08/2025 at 12:19 Approved by: Prema Hunt MD on 04/08/2025 at 12:21 Normal [facility] LIPID PROFILEon 04-08-2025 Cholesterol [Mass/Vol] 229 mg/dL Normal 0 - 240 [facility] Comment on above: Performed By: #### 2 30757 #### [facility],[address] [place] [address] 43524 Cholesterol in HDL [Mass/Vol] 58 mg/dL Normal 40 - 60 [facility] Comment on above: Performed By: #### 2 89639 #### [facility],[address] [place] [address] 33856 Cholesterol in LDL [Mass/Vol] 162 mg/dL High 0 - 129 [facility] Comment on above: Performed By: #### 2 18679 #### [facility],[address] [place] [address] 30055 Cholesterol.total/C holesterol in HDL [Mass ratio] 3.9 {ratio} Normal 0.0 - 5.0 [facility] Comment on above: Performed By: #### 2 84470 #### [facility],[address] [place] [address] 74328 Lipid 1996 panel Normal [facility] Comment on above: Result Comment: LIPI D PROFILE Performed By: #### 2 47497 #### [facility],[address] [place] [address] 11806 Triglyceride [Mass/Vol] 44 mg/dL Normal 0 - 150 [facility] Comment on above: Performed By: #### 2 74201 #### [facility],[address] [place] [address] 76721 LUMBO SACRAL COMPLETE MIN 4 VIEWSon 04-08-2025 LUMBO SACRAL COMPLETE MIN [address] ? [place] [address] ? Patient: MOISES BARNEY Phone#: : 1965 Age: 59 Gender: M Pt. Type: Out Account: [id number] Location: 052 Ordering: FERNANDA SWIHART Exam Date: 04/08/2025/11:24 Family Phys: Charge Code: [id number] Physician: Chase Order #: [id number] Dose#: PROCEDURE: X-RAY LUMBAR SPINE COMPLETE MIN 4 VIEWS COMPARISON: None. INDICATIONS: SPINAL STENOSIS; LUMBOSACRAL REGION FINDINGS: BONES: Vertebral bodies are maintained in height. Minimal grade 1 anterolisthesis of L2 on L3. There is facet arthropathy in the lower lumbar spine. Moderate to severe osseous foraminal narrowing at L4-5 and L5-S1. Mild disc height loss at L3-4. Osteophytes are present throughout the lumbar spine. DISC SPACES: Disc height loss at L2-3, L3-4, L4-5 and L5-S1. PARASPINOUS: Negative. No paraspinous abnormality is seen. OTHER: Moderate stool burden in the ascending colon CONCLUSION: 1. Multilevel disc height loss 2. Multilevel osseous foraminal narrowing Dictated by: Prema Hunt MD on 04/08/2025 at 12:13 Approved by: Prema Hunt MD on 04/08/2025 at 12:19 Normal [facility] SACRO ILIAC JTSon 04-08-2025 SACRO ILIAC [address] ? [place] [address] ? Patient: MOISES BARNEY Phone#: : 1965 Age: 59 Gender: M Pt. Type: Out Account: [id number] Location: 052 Ordering: FERNANDA SWIHART Exam Date: 04/08/2025/11:15 Family Phys: Charge Code: [id number] Physician: Chase Order #: [id number] Dose#: PROCEDURE: X-RAY SI JOINTS COMPARISON: [facility], XR, LUMBAR SPINE COMPLETE, 04/08/2025, 11:24. INDICATIONS: SPINAL STENOSIS; LUMBOSACRAL REGION FINDINGS: BONES: Transitional anatomy at lumbosacral junction with sacralization of the left L5 transverse process. Right sacroiliac joint is patent. No sclerosis or erosion. Margins are smooth. Left sacroiliac joint is patent. No sclerosis or erosion. Margins are smooth. SOFT TISSUES: Negative. No visible soft tissue swelling. EFFUSION: None visible. OTHER: Negative. CONCLUSION: 1. Unremarkable sacroiliac joint 2. Transitional anatomy at the lumbosacral junction with sacralization of left L5 transverse process Dictated by: Prema Hunt MD on 04/08/2025 at 12:21 Approved by: Prema Hunt MD on 04/08/2025 at 12:23 Normal [facility] TSHon 04-08-2025 TSH Qn 4.76 m[IU]/L High 0.35 - 3.74 [facility] Comment on above: Performed By: #### 2 01353 #### [facility],[address] [place], [place] [id number] VITAMIN B-12on 04-08-2025 Cobalamin (Vitamin B12) [Mass/Vol] 1062 pg/mL High 193 - 986 [facility] Comment on above: Performed By: #### 2 37811 #### [facility],[address] [place], [place] [id number] VITAMIN D, 25 HYDROXYon 03-24 VitD 58.20 ng/mL Normal 30.00 - 100 [facility] Comment on above: Result Comment: 25-O HD3 indicates both endogenous production and supplementation. 25-OHD2 is an indicator of exogenous sources, such as diet or supplementation. Therapy is based on measurement of Total 25-OHD, with levels <20 ng/mL indicative of Vitamin D deficiency, while levels between 20 ng/mL and 30 ng/mL suggest insufficiency. Optimal levels are >=30ng/mL. Vitamin D, 25-OH D3 Not Established Vitamin D, 25-OH D2 Not Established Performed By: #### 2 [id number] #### [address] [address] TESTOSTERONE, TOTAL & FREE, SERUM [CCL]on 01-22-2025 Free Testosterone 3.94 ng/dL Normal 1.47-6.36 [facility] Comment on above: Result Comment: Test ing performed by equilibrium dialysis (ED) and Liquid Chromatography-Tandem Mass Spectrometry (LC-MS/MS). This test was developed, and its performance characteristics determined by the [facility] Department of Pathology and Laboratory Medicine. It has not been cleared or approved by the FDA. The [facility] Department of Pathology and Laboratory Medicine is regulated under CLIA as qualified to perform high-complexity testing. This test is used for clinical purposes. It should not be regarded as investigational [place] [address] Jhon Chadwick III, M.D. [id number] Performed By: #### 2 96822 #### [address] [address] Testosterone [Mass/Vol] 240.9 ng/dL Normal 240.0-950.0 [facility] Comment on above: Result Comment: Test ing performed by Liquid Chromatography- Tandem Mass Spectrometry (LC-MS/MS). This test was developed, and its performance characteristics determined by the [facility] Department of Pathology and Laboratory Medicine. It has not been cleared or approved by the FDA. The [facility] Department of Pathology and Laboratory Medicine is regulated under CLIA as qualified to perform high-complexity testing. This test is used for clinical purposes. It should not be regarded as investigational or for research. Performed By: #### 2 09592 #### [address] [address] HEMATOCRITon 01-18-2025 Hematocrit (Bld) [Volume fraction] 53.5 % High 40.0 - 52.0 [facility] Comment on above: Performed By: #### 2 00800 #### [facility],[address] [place] [address] HEMOGLOBINon 01-18-2025 Hemoglobin (Bld) [Mass/Vol] 18.1 g/dL High 13.0 - 17.5 [facility] Comment on above: Performed By: #### 2 91037 #### [facility],[address] [place] [address] TESTOSTERONE, TOTAL & FREE, SERUM [CCL]on 07-30-2024 Testosterone, % Free, S 6.38 % High 1.50-4.20 [facility] Comment on above: Result Comment: Re sults verified by repeat testing Test(s) 183397-Mgrpevktihch, Total, LC/MS was developed and its performance characteristics determined by [employer]. It has not been cleared or approved by the Food and Drug Administration. Performed at: 01 [address] [id number] Operations Developer: Rocael Lewis MD, Phone: [phone] [place] [address] Jhon Chadwick III, M.D. [id number] Performed By: #### 2 63733 #### [address] [address] Testosterone, Free, S 114.67 ng/dL High 5.00-21.00 [facility] Comment on above: Performed By: #### 2 23987 #### [facility],[address] [place] [address] Testosterone, Total, S 1797.4 ng/dL High 264.0-916.0 [facility] Comment on above: Result Comment: [facility] method is currently certified by the CDC Hormone Standardization Program (HoSt). Adult male reference interval is based on a population of healthy nonobese males (BMI <30) between 19 and 39 years old. Lynette et.al. JCEM 2017,102;3468-1442. PMID: [id number]. Performed By: #### 2 06912 #### [facility],[address] [place] [address] HEMATOCRITon 07-20-2024 Hematocrit (Bld) [Volume fraction] 52.5 % High 40.0 - 52.0 [facility] Comment on above: Performed By: #### 2 15911 #### [facility],[address] [place] [address] HEMOGLOBINon 07-20-2024 Hemoglobin (Bld) [Mass/Vol] 17.6 g/dL High 13.0 - 17.5 [facility] Comment on above: Performed By: #### 2 91871 #### [facility],[address] [place], [place] [id number] Office Visit (Urology)on Follow-up visit Diagnoses/Problems Assessed Erectile dysfunction (607.84) (N52.9) Hypogonadism in male (257.2) (E29.1) Nocturia (788.43) (R35.1) Never smoked cigarettes (V49.89) (Z78.9) Orders Hypogonadism in male Start: Xyosted 100 MG/0.5ML Subcutaneous Solution Auto-injector; INJECT 100 MG Weekly Rx By: Caleb Alfredo II; Dispense: 0 Days ; #:4 X 0.5 ML Pen; Refill: 5;For: Hypogonadism in male; PEGGY = N; Sent To: [facility]; Last Updated By: Michelle Julio; 01/02/2023 8:43:22 AM Follow-up visit in 3 months Outpatient Follow-up testosterone Status: Hold For - Scheduling,Retrospec tive Authorization Requested for: [id number] Ordered Stat;For: Hypogonadism in male; Ordered By: Caleb Alfredo II Performed: Due: 02Apr2023; Last Updated By: Michelle Julio; 01/02/2023 8:44:19 AM Testosterone, Level; Status:Active - Retrospective Authorization; Requested for:[id number]; Perform:Lab Services - Lab To Draw (Blood Test); Due:02Apr2023; Last Updated By:Michelle Julio; 01/02/2023 8:44:19 AM;Ordered; For:Hypogonadism in male; Ordered By:Caleb Alfredo II; Patient Discussion/Summary pros/cons of Testosterone replacement reviewed. Replacement options discussed. Questions answered. Available levels reviewed. D/C IM injections Xyosted Rx given New Level ordered All available PSA values reviewed, Options discussed. Questions answered. Diet changes for prostate health discussed and educational information given. Pros/Cons of prostate health supplements discussed. Treatment options for ED reviewed. Sildenafil refills authorized Treatment options for LUTS reviewed Discussed timed voiding. Discussed fluid and caffeine intake F/U 3 months with T level Chief Complaint 6 mo w/ labs History of Present IllnessPatient has chronic hx of hypogonadism....Donna ent is doing 1ml q weekly injections. . Most recent labs were done on 01/13 Testosterone was 40, HANDH 17.5 and 52.9, PSA 1.14... Previous labs 07/16, Testosterone was 230, PSA was 1.38, HCT was 50.9, HGB was 17.0... prior was 12/13. T level was 1116. Hct was 53.4, Hgb was 17.5, and PSA was 1.56. Prior Labs were done on 06/2021. T level was 665, HCT was 51.4, HGB was 17.1, and PSA was 1.44. Chronic BPH sx are mild and stable...No frequency and urgency.. Denies dysuria and hematuria.. Nocturia x1.. Caffeine does worsen LUT's. No medication for AAYUSH'TS. ED is mild. Sildenafil is helpful Review of Systems Constitutional: No fever, No chills. Eye: Negative. Ear/Nose/Mouth/Throa t: Negative. Respiratory: No shortness of breath, No cough. Cardiovascular: No chest pain, No peripheral edema. Gastrointestinal: No nausea, Genitourinary: Negative except as documented in history of present illness. Hematology/Lymphatic s: Patient denies being on blood thinners.. Endocrine: Negative. Immunologic: Not immunocompromised. Musculoskeletal: Negative Integumentary: Negative. Neurologic: Alert and oriented X4. Psychiatric: Negative. Active Problems Problems Erectile dysfunction (607.84) (N52.9) Hemorrhoids, unspecified hemorrhoid type (455.6) (K64.9) Hypogonadism in male (257.2) (E29.1) Nocturia (788.43) (R35.1) Surgical History Problems History of Ankle surgery History of Arm surgery History of Back surgery History of Leg surgery History of Neck surgery History of Vasectomy History of Vasectomy reversal Family History Mother Family history of Medical history unknown Father Family history of Medical history unknown Social History Problems Never a smoker Never smoked cigarettes (V49.89) (Z78.9) Allergies Medication No Known Drug Allergies Recorded By: Angi Paredes; 05/18/2019 9:45:11 AM Current Meds Medication NameInstruction Sildenafil Citrate 100 MG Oral TabletTake 1 tab PO daily PRN for erectile dysfuction Vitals Vital Signs Recorded: [id number] 08:29AM Bjrjdtcoslf51 Height5 ft 10 in Knkcli890 lb BMI Lwzdxjuqfe27.41 kg/m2 BSA Calculated2.11 Tobacco Useb) No PHQ-2 Patient Declined/Screening not indicatedYes Falls Screening (Age 18+)a) No falls within the last year Physical Exam A/O x 3 in No apparent distress Constitutional: General appearance normal Respiratory: Respiratory effort is normal Gastrointestinal:Abd omen is not tender Genitourinary: Kidneys: Not palpable Bilaterally Bladder: Not palpable or tender Scrotum: No mass. No Hydrocele Epididymis: Small Right spermatocele. Not tender Testicles: no mass Urethra: No Discharge Penis: WNL...No lesions Prostate:deferred Signatures Electronically signed by : Caleb Alfredo II, MD; Jan 02 2023 8:46AM EST (Author) [facility] Tobacco Screening.on 023 Fall risk assessment a) No falls within the last year LZ-Npvapan-Ydm land Work Phone: Tobacco use status [facility] b) No SC-Jriqswr-Dep land Work Phone: Tobacco Screening. Yes MP-Uro logy-[employer] land Work Phone: No Panel Informationon 12-26 40 ng/dL below low threshold 193-824 MP-Ur ology-Mario hland HC 232 DO Work Phone: Comment on above: A testosterone level in the 193-320 ng/dL range with associated clinical symptoms is considered low and may indicate hypogonadism (from NEJ 2009 363:123-135). Results >320 ng/dL are considered normal.Result rechecked. Office Visit (Urology)on Follow-up visit Diagnoses/Problems Assessed Erectile dysfunction (607.84) (N52.9) Hypogonadism in male (257.2) (E29.1) Nocturia (788.43) (R35.1) Never a smoker Orders Hypogonadism in male Renew: BD Hypodermic Needle 18G X 1-1/2; Use to draw up IM testosterone injections Rx By: Caleb Alfredo II; Dispense: 0 Days ; #:12 Each; Refill: 3;For: Hypogonadism in male; PEGGY = N; Verified Transmission to [facility]; Last Updated By: [employer]; 07/04/2022 9:44:16 AM Renew: BD Luer-Claudia Syringe 22G X 1-1/2 3 ML; USE DIRECTED FOR IM TESTOSTERONE INJECTIONS Rx By: Caleb Alfredo II; Dispense: 0 Days ; #:12 Each; Refill: 3;For: Hypogonadism in male; PEGGY = N; Verified Transmission to [facility]; Last Updated By: Quipper; 07/04/2022 9:44:23 AM Renew: Testosterone Cypionate 200 MG/ML Intramuscular Solution; INJECT 4 ML Other inject IM monthly Rx By: Caleb Alfredo II; Dispense: 1 Days ; #:4 Milliliter; Refill: 5;For: Hypogonadism in male; PEGGY = N; Sent To: [facility]; Last Updated By: Kiet Burrell; 07/04/2022 9:43:19 AM SocHx: Never a smoker Tobacco Use Screening; Status:Complete; Done: 04Jul2022 Perform:Not Applicable;Ordered; For:SocHx: Never a smoker; Ordered By:Kiet Burrell; Patient Discussion/Summary All available PSA values reviewed, Options discussed. Questions answered. Diet changes for prostate health discussed and educational information given. Pros/Cons of prostate health supplements discussed. Treatment options for LUTS reviewed Discussed timed voiding. Discussed fluid and caffeine intake Treatment options for ED reviewed. Continue Sildenafil pros/cons of Testosterone replacement reviewed. Replacement options discussed. Questions answered. Available levels reviewed. T Rx refilled F/u 6 months with Labs Chief Complaint 6 mo w/ labs History of Present IllnessPatient has chronic hx of hypogonadism....Donna ent is doing 1ml q weekly injections. . Most recent labs were done on 07/16 , PSA was 1.38, HCT was 50.9, HGB was 17.0..MOST recent T level is still pending. prior was 12/13. T level was 1116. Hct was 53.4, Hgb was 17.5, and PSA was 1.56. Prior Labs were done on 06/2021. T level was 665, HCT was 51.4, HGB was 17.1, and PSA was 1.44. Chronic BPH sx are mild and stable...No frequency and urgency.. Denies dysuria and hematuria.. Nocturia x1.. Caffeine does worsen LUT's. No medication for AAYUSH'TS. ED is mild. Sildenafil is helpful Review of Systems Constitutional: No fever, No chills. Eye: Negative. Ear/Nose/Mouth/Throa t: Negative. Respiratory: No shortness of breath, No cough. Cardiovascular: No chest pain, No peripheral edema. Gastrointestinal: No nausea, Genitourinary: Negative except as documented in history of present illness. Hematology/Lymphatic s: Patient denies being on blood thinners.. Endocrine: Negative. Immunologic: Not immunocompromised. Musculoskeletal: Negative Integumentary: Negative. Neurologic: Alert and oriented X4. Psychiatric: Negative. Active Problems Problems Erectile dysfunction (607.84) (N52.9) Hemorrhoids, unspecified hemorrhoid type (455.6) (K64.9) Hypogonadism in male (257.2) (E29.1) Nocturia (788.43) (R35.1) Surgical History Problems History of Ankle surgery History of Arm surgery History of Back surgery History of Leg surgery History of Neck surgery History of Vasectomy History of Vasectomy reversal Family History Mother Family history of Medical history unknown Father Family history of Medical history unknown Social History Problems Never a smoker Never smoked cigarettes (V49.89) (Z78.9) Allergies Medication No Known Drug Allergies Recorded By: Angi Paredes; 05/18/2019 9:45:11 AM Current Meds Medication NameInstruction BD Disp [place] 21G X 1-1/2USE DIRECTED FOR IM TESTOSTERONE INJECTIONS BD Disp [place] 21G X 1-1/2Use for monthly IM testosterone injection BD Hypodermic Needle 18G X 1-1/2Use to draw up IM testosterone injections BD Luer-Claudia Syringe 22G X 1-1/2 3 MLUSE DIRECTED FOR IM TESTOSTERONE INJECTIONS Sildenafil Citrate 100 MG Oral TabletTake 1 tab PO daily PRN for erectile dysfuction Testosterone Cypionate 200 MG/ML Intramuscular SolutionINJECT 1ML IM Q WEEKLY Testosterone Cypionate 200 MG/ML Intramuscular SolutionINJECT 4 ML Other inject IM monthly Vitals Vital Signs Recorded: 04Jul2022 09:41AM Heart Rate76 Uaeudqau830 Lzcgabste57 Agplcs012 lb 0.6 oz BMI Spzqgtvfum90.57 kg/m2 BSA Calculated2.14 Tobacco Useb) No PHQ-2 Patient Declined/Screening not indicatedYes Falls Screening (Age 18+)a) No falls within the last year Physical Exam A/O x 3 in No apparent distress Constitutional: General appearance normal Respiratory: Respiratory effort is normal Gastrointestinal:Abd omen is not tender Genitourinary: Kidneys: Not palpable Bilaterally Bladder: Not palpable or tender Scrotum: No mass. No Hydrocele Epididymis: No spermatocele. Not t (more content not included)... Normal [facility] Tobacco Screening.on 023 Fall risk assessment a) No falls within the last year BH-Lvedqdm-Vye land Work Phone: Tobacco use status [facility] b) No YF-Ssysxhz-Rsz land Work Phone: Tobacco Screening. Yes MP-Uro logy-[employer] Work Phone: No Panel Informationon 06-25 7.52 ng/dL Normal 3.87-14.7 BR-Kqdgoka-Vvu land Work Phone: Comment on above: A DDITIONAL INFORMATION This test was developed and its performance characteristics determined by [facility] in a manner consistent with CLIA requirements. This test has not been cleared or approved by the U.S. Food and Drug Administration. 230 ng/dL below low threshold 240-950 MP-Ur ologySABIA Phone: Comment on above: A DDITIONAL INFORMATION Testing performed by Liquid Chromatography-Tandem Mass Spectrometry (LC-MS/MS).This test was developed and its performance characteristics determined by [facility] in a manner consistent with CLIA requirements. This test has not been cleared or approved by the U.S. Food and Drug Administration. Test Performed by:[facility] [place] [id number] Director: Jaspreet Arenas M.D. Ph.D.; CLIA# [id number] Final Surgical Pathology Rep pramod 01-09-2022 Final Surgical Pathology Report . Pathology Reports Accession: Collected Date/Time: Received Date/Time: Pathologist: [id number] 01/05/2022 09:47 EDT 01/08/2022 09:47 EDT MD OSITO WU Final Surgical Pathology Report DIAGNOSIS: DUODENUM, BIOPSY - MILD NONSPECIFIC VILLOUS BLUNTING, NOT FURTHER DIAGNOSTIC. COMMENT: Alessandra [id number] CLINICAL INFORMATION: PAINLESS RECTAL BLEEDING PROCEDURE: COLONOSCOPY/EGD SPECIMEN: A DUODENUM BIOPSY GROSS DESCRIPTION: A. Received in formalin, labeled with the patients name, Case #[id number], and duodenum biopsy is a dobson soft tissue fragment measuring less than 0.1 cm. TS -1 Dictated by HUMAIRA DALEY MICROSCOPIC DESCRIPTION: Slides reviewed. Electronically Signed by Pathology Report verified by [facility] Electronically signed by OSITO WU MD Sign out Date: 01/09/2022 16:44 Performing Lab: [facility], [address] [place] [address] ([place]) IO UA (nonautomated w/o micr oscopy)on 01-03-2022 Protein (U) [Mass/Vol] Negative NT-Pgajddg-Yzz Niwa Work Phone: IO UA (nonautomated w/o microscopy) Normal (0.2-1.0 mg/dl) QC-Jzeirke-Rcj Niwa Work Phone: IO UA (nonautomated w/o microscopy) Negative PG-Sboqbkl-Yha Niwa Work Phone: IO UA (nonautomated w/o microscopy) 7.0 1 KM-Bllwqrw-Qry land Work Phone: IO UA (nonautomated w/o microscopy) 1.020 1 KG-Pdkdzha-Qmy land Work Phone: IO UA (nonautomated w/o microscopy) Clear AE-Nlcilhf-Slp land Work Phone: IO UA (nonautomated w/o microscopy) Yellow IR-Bmkaiyc-Dfm land Work Phone: Tobacco Screening.on 022 Adult depression screening assessment No CY-Wyvciqh-Tnl land Work Phone: Fall risk assessment a) No falls within the last year GD-Bcjilwz-Jvh land Work Phone: Tobacco use status [facility] b) No FN-Matdirj-Sgg land Work Phone: No Panel Informationon 12-26 1116 ng/dL above high threshold 193-824 MZ-Bklvvxg-Zid hland HC 232 DO Work Phone: Comment on above: A testosterone level in the 193-320 ng/dL range with associated clinical symptoms is considered low and may indicate hypogonadism (from NEJ 2010 363:123-135). Results >320 ng/dL are considered normal. Tobacco Screening.on 022 Fall risk assessment a) No falls within the last year KZ-Bmhgijx-Oan land Work Phone: Tobacco use status [facility] b) No CW-Nzyhhao-Kuw land Work Phone: Hemoglobin A1con 06-27-2021 Glucose [Mass/Vol] 103 mg/dL Normal [facility] Comment on above: Performed By: #### H BA1C, TESTO #### [facility] Routine Lab [address] [place], [place] [address] HbA1c (Bld) [Mass fraction] 5.2 % Normal 4.3-5.6 [facility] Reference Lab Comment on above: Performed By: #### H BA1C, TESTO #### [facility] Routine Lab [address], [place] [address] Testosteroneon 06-27-2021 Testosterone [Mass/Vol] 665 ng/dL Normal 193-824 [facility] Reference Lab Comment on above: Performed By: #### H BA1C, TESTO #### [facility] Routine Lab [address] [place], [place] [address] Tobacco Screening.on 021 Fall risk assessment a) No falls within the last year FH-Llokbtj-Mse land Work Phone: Tobacco use status [facility] b) No FS-Rknycqw-Ajc land Work Phone: Testosteroneon 12-27-2020 Testosterone [Mass/Vol] 240 ng/dL Normal 193-824 [facility] Reference Lab Comment on above: Performed By: #### T ESTO #### [facility] Routine Lab [address] [place], [place] [address] Vital Signs Date Time Vital Sign Value Performing Clinician Facility 01-25-2025 09:27-0400 Body height 182.9 cm Bereket Ramires WILDLIFE ENFORCEMENT MAJOR-CODING TECHNICIAN Work Phone: [facility] 01-25-2025 09:27-0400 Body mass index (BMI) [Ratio] 27.64 kg/m2 Bereket Ramires WILDLIFE ENFORCEMENT MAJOR-CODING TECHNICIAN Work Phone: [facility] 01-25-2025 09:27-0400 Body weight 92.44 kg Bereket Ramires WILDLIFE ENFORCEMENT MAJOR-CODING TECHNICIAN Work Phone: [facility] 01-25-2025 09:27-0400 Diastolic blood pressure 98 mm[Hg] Bereket Ramires WILDLIFE ENFORCEMENT MAJOR-CODING TECHNICIAN Work Phone: [facility] 01-25-2025 09:27-0400 Heart rate 71 /min Bereket Ramires WILDLIFE ENFORCEMENT MAJOR-CODING TECHNICIAN Work Phone: [facility] 01-25-2025 09:27-0400 Systolic blood pressure 147 mm[Hg] Bereket Ramires WILDLIFE ENFORCEMENT MAJOR-CODING TECHNICIAN Work Phone: [facility] 07-29-2024 08:48-0500 Body height 180.3 cm Caleb Alfredo MD Work Phone: [facility] 07-29-2024 08:48-0500 Body mass index (BMI) [Ratio] 31.21 kg/m2 Caleb Alfredo MD Work Phone: [facility] 07-29-2024 08:48-0500 Body weight 101.52 kg Caleb Alfredo MD Work Phone: [facility] 07-29-2024 08:48-0500 Diastolic blood pressure 94 mm[Hg] Caleb Alfredo MD Work Phone: [facility] 07-29-2024 08:48-0500 Heart rate 71 /min Caleb Alfredo MD Work Phone: [facility] 07-29-2024 08:48-0500 Systolic blood pressure 147 mm[Hg] Caleb Alfredo MD Work Phone: [facility] 07-17-2023 08:01-0500 Body mass index (BMI) [Ratio] 31.1 kg/m2 Caleb Alfredo MD Work Phone: [facility] 07-17-2023 08:01-0500 Body weight 101.15 kg Caleb Alfredo MD Work Phone: [facility] 07-17-2023 08:01-0500 Respiratory rate 16 /min Caleb Alfredo MD Work Phone: [facility] 01-02-2023 08:29-0400 Body height 177.8 cm Caleb Alfredo II, MD Work Phone: OY-Ockiavw-Wkbdpaj Work Phone: 01-02-2023 08:29-0400 Body mass index (BMI) [Ratio] 29.41 kg/m2 Caleb Alfredo II, MD Work Phone: TH-Takchys-Lbgomxr Work Phone: 01-02-2023 08:29-0400 Body surface area Derived from formula 2.11 m2 Caleb Alfredo II, MD Work Phone: GR-Dgkygek-Vmfyexg Work Phone: 01-02-2023 08:29-0400 Body weight 92.99 kg Caleb Alfredo II, MD Work Phone: KS-Zjrdaft-Hhojjyv Work Phone: 01-02-2023 08:29-0400 Respiratory rate 16 /min Caleb Alfredo II, MD Work Phone: XY-Mwamcqw-Jiznqrd Work Phone: 07-04-2022 09:41-0500 Body mass index (BMI) [Ratio] 30.57 kg/m2 Caleb Alfredo II, MD Work Phone: MT-Vripltz-Syvhgid Work Phone: 07-04-2022 09:41-0500 Body surface area Derived from formula 2.14 m2 Caleb Alfredo II, MD Work Phone: AE-Zavmjbw-Defceio Work Phone: 07-04-2022 09:41-0500 Body weight 96.63 kg Caleb Alfredo II, MD Work Phone: VL-Eqztsvc-Kvcmpbp Work Phone: 07-04-2022 09:41-0500 Diastolic blood pressure 75 mm[Hg] Caleb Alfredo II, MD Work Phone: GT-Evrsqde-Bvqlzel Work Phone: 07-04-2022 09:41-0500 Heart rate 76 /min Caleb Alfredo II, MD Work Phone: SV-Werfbxz-Ajblntq Work Phone: 07-04-2022 09:41-0500 Systolic blood pressure 137 mm[Hg] Caleb Alfredo II, MD Work Phone: UR-Mpiwbdb-Lpeczgn Work Phone: 01-03-2022 09:13-0400 Body mass index (BMI) [Ratio] 30.19 kg/m2 Caleb Alfredo II, MD Work Phone: SN-Lpvkzqu-Bwzlxvp Work Phone: 01-03-2022 09:13-0400 Body surface area Derived from formula 2.13 m2 Caleb Alfredo II, MD Work Phone: OB-Wvogaks-Sltyriv Work Phone: 01-03-2022 09:13-0400 Body weight 95.43 kg Caleb Alfredo II, MD Work Phone: OA-Lxdqwgz-Lcsviki Work Phone: 01-03-2022 09:13-0400 Diastolic blood pressure 80 mm[Hg] Caleb Alfredo II, MD Work Phone: GL-Roqtvpb-Bmsrhee Work Phone: 01-03-2022 09:13-0400 Heart rate 74 /min Caleb Alfredo II, MD Work Phone: UK-Wezxrau-Hexoqwi Work Phone: 01-03-2022 09:13-0400 Systolic blood pressure 125 mm[Hg] Caleb Alfredo II, MD Work Phone: OW-Riifeln-Saftpvf Work Phone: 07-03-2021 08:05-0500 Body height 177.8 cm Caleb Alfredo II, MD Work Phone: WK-Cjiaqzq-Iccirey Work Phone: 07-03-2021 08:05-0500 Body mass index (BMI) [Ratio] 31.6 kg/m2 Caleb Alfredo II, MD Work Phone: SK-Ahtmcjh-Tglcpsq Work Phone: 07-03-2021 08:05-0500 Body surface area Derived from formula 2.17 m2 Caleb Alfredo II, MD Work Phone: AZ-Anyismw-Ydiqaah Work Phone: 07-03-2021 08:05-0500 Body weight 99.91 kg Caleb Alfredo II, MD Work Phone: XR-Fcimmuo-Hogxait Work Phone: 07-03-2021 08:05-0500 Diastolic blood pressure 93 mm[Hg] Caleb Alfredo II, MD Work Phone: MO-Lclbczn-Gnzdhly Work Phone: 07-03-2021 08:05-0500 Heart rate 76 /min Caleb Alfredo II, MD Work Phone: BP-Nrinatn-Rqdswjq Work Phone: 07-03-2021 08:05-0500 Systolic blood pressure 154 mm[Hg] Caleb Alfredo II, MD Work Phone: NY-Kaqnxaj-Lekmdon Work Phone: 01-02-2021 08:10-0400 Body height 177.8 cm Caleb Alfredo II, MD Work Phone: DM-Sstoueu-Uubdruo Work Phone: 01-02-2021 08:10-0400 Body mass index (BMI) [Ratio] 30.56 kg/m2 Caleb Alfredo II, MD Work Phone: CQ-Dhshixq-Kprlhnu Work Phone: 01-02-2021 08:10-0400 Body surface area Derived from formula 2.14 m2 Caleb Alfredo II, MD Work Phone: OJ-Dyjemfe-Jspufuc Work Phone: 01-02-2021 08:10-0400 Body weight 96.62 kg Caleb Alfredo II, MD Work Phone: OS-Vrxklaf-Uwvksmi Work Phone: 01-02-2021 08:10-0400 Diastolic blood pressure 81 mm[Hg] Caleb Alfredo II, MD Work Phone: NB-Afyxtbj-Rzjxonf Work Phone: 01-02-2021 08:10-0400 Heart rate 65 /min Caleb Alfredo II, MD Work Phone: QJ-Qfdryym-Tlikkju Work Phone: 01-02-2021 08:10-0400 Systolic blood pressure 149 mm[Hg] Caleb Alfredo II, MD Work Phone: JE-Yjpriuy-Ylwgogx Work Phone: 12-28-2019 12:42-0400 BMI (Body Mass Index) 31.48 kg/m2 Caleb Alfredo II, MP-Urology -[place] Work Phone: 12-28-2019 12:42-0400 Body weight 99.51 kg Claeb Alfredo II, MPDH-Zxlzwfk-Gwidw nd Work Phone: 12-28-2019 12:42-0400 BP Diastolic 91 mm[Hg] Caleb Alfredo II, MPND-Ltgelbc-Iolkg nd Work Phone: 12-28-2019 12:42-0400 BP Systolic 126 mm[Hg] Caleb Alfredo II, MPVC-Muigweg-Kfgqe nd Work Phone: 12-28-2019 12:42-0400 BSA (Body Surface Area) 2.17 m2 Caleb Alfredo II, MPBL-Qslqxsd-Fvadkdq Work Phone: 12-28-2019 12:42-0400 Height 177.8 cm Caleb Alfredo II, MPNK-Oexopwz-Uphcz nd Work Phone: 12-28-2019 12:42-0400 Pulse (Heart Rate) 77 /min Caleb Alfredo II, MP-Urology-[place] Work Phone: Encounters Encounter Date Encounter Type Care Provider Facility Start: 04-20-2025 ambulatory [facility] Start: 04-08-2025 End: 04-08-2025 ambulatory [facility] Start: 04-08-2025 End: 04-08-2025 [facility] Start: 01-25-2025 End: 01-25-2025 Office outpatient visit 15 minutes [facility] WILDLIFE ENFORCEMENT MAJOR-CODING TECHNICIAN Work Phone: [facility] Comment on above: BPH with obstruction /lower urinary tract symptoms (Primary Dx); Hypogonadism in male; Erectile dysfunction, unspecified erectile dysfunction type Start: 01-25-2025 End: 01-25-2025 ambulatory [facility] Start: 01-18-2025 End: 01-18-2025 ambulatory CALEB ALFREDO [facility] Start: 07-29-2024 End: 07-29-2024 Office outpatient visit 15 minutes Caleb Alfredo MD Work Phone: [facility] Comment on above: Erectile dysfunction , unspecified erectile dysfunction type; Hypogonadism in male; Nocturia; BPH with obstruction/lower urinary tract symptoms Start: 07-29-2024 End: 07-29-2024 ambulatory CALEB ALFREDO [facility] Start: 07-20-2024 End: 07-20-2024 ambulatory CALEB ALFREDO [facility] Start: 07-17-2023 End: 07-17-2023 Office outpatient visit 25 minutes Caleb Alfredo MD Work Phone: [facility] Comment on above: Erectile dysfunction , unspecified erectile dysfunction type; Hypogonadism in male; Nocturia; BPH with obstruction/lower urinary tract symptoms Start: 01-02-2023 FUV, Provider: Caleb Alfredo II, Status: Pen, Time: 9:15 AM Caleb Alfredo II, MD Work Phone: AZ-Sxjhmfa-Fodeunka HC 232 DO Work Phone: Start: 01-02-2023 Office outpatient vi sit 25 minutes Caleb Alfredo II, MD Work Phone: CI-Rembpcj-Wscpajy Work Phone: Start: 01-02-2023 ambulatory Provider Pending Facili ty:[id number] Start: 12-31-2022 Chart Update Caleb Arriola Work Phone: JN-Jikmxwz-Woqctsqw HC 232 DO Work Phone: Start: 07-04-2022 Office outpatient vi sit 25 minutes Caleb Alfredo II, MD Work Phone: HN-Ruaxwbb-Cswmbtt Work Phone: Start: 07-04-2022 ambulatory Provider Pending Facili ty:[id number] Start: 05-24-2022 AUDIT Caleb Arriola Work Phone: ZS-Irtyyld-Crlnmaxt HC 232 DO Work Phone: Start: 04-03-2022 AUDIT Caleb Arriola Work Phone: BY-Xgxqsfn-Ffkhiml Work Phone: Start: 03-30-2022 AUDIT Caleb Alfredo II M D Work Phone: WE-Jofjwag-Dzclaob Work Phone: Start: 01-03-2022 Office outpatient vi sit 25 minutes Caleb Alfredo II, MD Work Phone: NS-Lhisken-Kxlagoc Work Phone: Start: 12-28-2021 Chart Update Caleb Alfredo II M D Work Phone: JG-Fayogcd-Czcffdka HC 232 DO Work Phone: Start: 11-28-2021 AUDIT Caleb Alfredo II M D Work Phone: BA-Ztjenxs-Vaqscbo Work Phone: Start: 11-17-2021 AUDIT Caleb Alfredo II M D Work Phone: HF-Xsqasmq-Lpnztai Work Phone: Start: 08-17-2021 AUDIT Caleb Alfredo II M D Work Phone: EI-Stqdizq-Qrodidq Work Phone: Start: 07-03-2021 Office outpatient vi sit 25 minutes Caleb Alfredo II, MD Work Phone: NP-Ptxrkoa-Myhtftd Work Phone: Start: 05-08-2021 AUDIT Caleb Alfredo II M D Work Phone: PH-Crwylsf-Uchqsyy Work Phone: Start: 05-01-2021 AUDIT Caleb Alfredo II M D Work Phone: TK-Mdnbczq-Rvjkbwp Work Phone: Start: 01-02-2021 Office outpatient vi sit 25 minutes Caleb Alfredo II, MD Work Phone: KR-Cguzqmu-Nrotyio Work Phone: Start: 11-17-2020 AUDIT Caleb Alfredo II M D Work Phone: LM-Cjhzryd-Yvypnee Work Phone: Start: 09-15-2020 End: 09-15-2020 ambulatory Elver ARECHIGA Facility:[facility] Start: 07-04-2020 Office outpatient vi sit 15 minutes Caleb Alfredo II, MD Work Phone: IT-Aigjstx-Dzsqmpe Work Phone: Start: 12-28-2019 Patient encounter procedure Caleb Luak II TL-Gqwaxvf-Efbcysk Work Phone: Start: 08-31-2019 Patient encounter procedure Caleb Alfredo II BC-Ulcorsf-Laoojtp Work Phone: Start: 05-18-2019 Patient encounter procedure Caleb Alfredo II DR-Mkrbjly-Nmutxtp Work Phone: Procedures Date Procedure Procedure Detail Performing Clinician Start: 01-18-2025 PSA screening CALEB ALFREDO Comment on above: Performed By: #### [id number] #### [place] [id number] Start: 07-20-2024 PSA screening CALEB ALFREDO Comment on above: Performed By: #### [id number] #### [place] [id number] Start: 12-28-2019 Assay of prostate sp ecific antigen total Caleb Alfredo II Start: 12-28-2019 Assay of testosterone total Caleb Alfredo II Start: 12-28-2019 Measurement of total hemoglobin concentration and hematocrit Caleb Alfredo II Start: 12-09-2019 Assay of prostate sp ecific antigen total Caleb Alfredo II Start: 12-09-2019 Assay of testosterone total Caleb Alfredo II Start: 12-09-2019 Measurement of total hemoglobin concentration and hematocrit Caleb Alfredo II Leg repair Caleb Alfredo II Operative procedure on ankle Caleb Alfredo II Procedure on back Caleb Alfredo II Procedure on neck Caleb Alfredo II Reversal of vasectomy Caleb P susana II Surgical repair of u pper extremity Caleb Alfredo II Vasectomy Caleb Alfredo II Plan of Treatment Date Care Activity Detail Author Start: 2039 RSV High Risk: (Elde rly (60+) or Population) (1 - 1-dose 75+ series) RSV High Risk: (Elderly (60+) or Population) (1 - 1-dose 75+ series) [facility] Start: 07-06-2025 End: 07-06-2025 Patient encounter procedure 07/06/2025 10:00 AM EST Office Visit [facility] [address] [facility] [address] [place] [id number] Bereket Ramires, WILDLIFE ENFORCEMENT MAJOR-CODING TECHNICIAN [address] [place] [address] [facility] Start: 04-27-2025 End: 01-25-2026 Hemoglobin and Hematocrit panel - Blood Hemoglobin and Hematocrit, Blood Lab Routine Hypogonadism in male BPH with obstruction/lower urinary tract symptoms Expected: 04/27/2025 (Approximate), Expires: 01/25/2026 [facility] Work Phone: Comment on above: Expected: 04/27/2025 (Approximate), Expires: 01/25/2026 Start: 02-22-2025 Influenza vaccination Influenza Vacc ine (#1) [facility] Start: 01-25-2025 End: 01-25-2026 Prostate specific Ag [Mass/volume] in Serum or Plasma PSA Lab Routine BPH with obstruction/lower urinary tract symptoms Expected: 01/25/2025 (Approximate), Expires: 01/25/2026 [facility] Work Phone: Comment on above: Expected: 01/25/2025 (Approximate), Expires: 01/25/2026 Start: 01-25-2025 End: 01-25-2026 Testosterone,Free and Total Testosterone,Free and Total Lab Routine BPH with obstruction/lower urinary tract symptoms Expected: 01/25/2025 (Approximate), Expires: 01/25/2026 [facility] Service Area Work Phone: Comment on above: Expected: 01/25/2025 (Approximate), Expires: 01/25/2026 Start: 02-23-2024 COVID-19 Vaccine ( season) COVID-19 Vaccine ( season) [facility] Start: 02-23-2024 Influenza vaccination Influenza Vacc ine (#1) [facility] Start: 01-15-2024 End: 07-17-2024 Hemoglobin and Hematocrit panel - Blood Hemoglobin and Hematocrit, Blood Lab Routine Hypogonadism in male Expected: 01/15/2024 (Approximate), Expires: 07/17/2024 [facility] Work Phone: Comment on above: Expected: 01/15/2024 (Approximate), Expires: 07/17/2024 Start: 01-15-2024 End: 07-17-2024 Prostate specific Ag [Mass/volume] in Serum or Plasma Prostate Specific Antigen Lab Routine Nocturia Expected: 01/15/2024 (Approximate), Expires: 07/17/2024 [facility] Service Area Work Phone: Comment on above: Expected: 01/15/2024 (Approximate), Expires: 07/17/2024 Start: 01-15-2024 End: 07-17-2024 Testosterone [Mass/volume] in Serum or Plasma Testosterone Lab Routine Hypogonadism in male Expected: 01/15/2024 (Approximate), Expires: 07/17/2024 [facility] Work Phone: Comment on above: Expected: 01/15/2024 (Approximate), Expires: 07/17/2024 Start: 01-15-2024 End: 01-15-2024 Patient encounter procedure 01/15/2024 8:30 AM EDT Office Visit [facility] [address] [id number] Caleb Alfredo MD [address] [place] [address] [facility] Start: 04-10-2023 FUV, Provider: Caleb Alfredo II, Status: Pen, Time: 9:15 AM FUV, Provider: Caleb Alfredo II, Status: Pen, Time: 9:15 AM OF-Kwkmnds-Jngjqkp Work Phone: Start: 02-22-2023 Influenza vaccination Influenza Vacc ine (#1) [facility] Start: 01-02-2023 FUV, Provider: Caleb Alfredo II, Status: Pen, Time: 9:15 AM FUV, Provider: Caleb Alfredo II, Status: Pen, Time: 9:15 AM [facility] Work Phone: Start: 07-04-2022 FUV, Provider: Caleb Alfredo II, Status: Pen, Time: 9:45 AM FUV, Provider: Caleb Alfredo II, Status: Pen, Time: 9:45 AM [facility] Work Phone: Start: 01-03-2022 FUV, Provider: Caleb Alfredo II, Status: Pen, Time: 9:00 AM FUV, Provider: Caleb Alfredo II, Status: Pen, Time: 9:00 AM KZ-Tbwmcof-Pkqaydmv HC 232 DO Work Phone: Start: 01-01-2022 FUV, Provider: Caleb Alfredo II, Status: Pen, Time: 8:15 AM FUV, Provider: Caleb Alfredo II, Status: Pen, Time: 8:15 AM [facility] Work Phone: Start: 07-03-2021 FUV, Provider: Caleb Alfredo II, Status: Pen, Time: 8:15 AM FUV, Provider: Caleb Alfredo II, Status: Pen, Time: 8:15 AM [facility] Work Phone: Start: 01-02-2021 FUV, Provider: Caleb Alfredo II, Status: Pen, Time: 8:45 AM FUV, Provider: Caleb Alfredo II, Status: Pen, Time: 8:45 AM [facility] Work Phone: Start: 06-29-2020 Assay of prostate specific antigen total Prostate Specific Antigen [facility] Work Phone: Start: 06-29-2020 Assay of testosteron e total Testosterone, Level [facility] Work Phone: Start: 06-29-2020 Measurement of total hemoglobin concentration and hematocrit Hemoglobin + Hematocrit [facility] Work Phone: Start: 2014 Pneumococcal vaccination Pneumococcal Vaccine (1 of - PCV) [facility] Start: 2014 Prostate specific antigen measurement PSA Prostate Cancer Screening [facility] Start: 2014 Zoster Vaccines (1 o f 2) Zoster Vaccines (1 of 2) [facility] Start: 1986 DTaP/Tdap/Td Vaccine s (1 - Tdap) DTaP/Tdap/Td Vaccines (1 - Tdap) [facility] Start: 1982 Diabetes mellitus screening Diabetes Screening [facility] Start: 1982 Hepatitis C screening Hepatitis C Sc reening [facility] Start: 1965 MMR Vaccines (1 of 1 - Standard series) MMR Vaccines (1 of 1 - Standard series) [facility] Start: 1964 COVID-19 Vaccine (#1) COVID-19 Vacci ne (#1) [facility] Start: 1964 Hepatitis B Vaccines (1 of 3 - 3-dose series) Hepatitis B Vaccines (1 of 3 - 3-dose series) [facility] Start: 1964 HIV screening HIV Screening [facility] Start: 1964 Lipid panel Lipid Panel [facility] Start: 1964 Screening for malign ant neoplasm of colon [facility] Start: 1964 Yearly Adult Physical Yearly Adult P hysical [facility] FN-Fjoklli-Fwso and Work Phone: NEGATED: Highlighted row has been ruled out! Planned Goals not documented BV-Vqdxdlr-Asdcoco Work Phone: Payers Date Payer Category Payer [employer]ven[employer]io [employer] [facility] [id number] 2024 Unknown [id number] 2022 Private Health Insurance ROSANA QUIJANO [employer] PLAN [id number] 2022-Present P [id number] [place] [address] [id number] 2022 Private Health Insurance [id number] 2020 Self-pay 2020 Unknown [id number] 1964 Unknown [id number] [id number] 1964 Unknown [id number] [id number] 1964 Unknown [id number] 1964 Unknown [id number] [id number] 1964 Unknown [id number] [id number] 1964 Unknown [id number]. [id number] 1964 Unknown [id number]. [id number] 1964 Unknown [id number]. [id number] 1964 Unknown [id number] [id number] Unknown Unknown [id number] [id number] Social History Date Type Detail Facility Start: 04-10-2023 End: 01-25-2025 Never a smoker Never a smoker SG-Fzixbzj-Ewbusjh Work Phone: Start: 04-10-2023 Tobacco smoking status NHIS Never smoked tobacco [facility] Work Phone: Start: 04-10-2023 Tobacco use and exposure Smokeless tobacco non-user [facility] Work Phone: Start: 04-10-2023 End: 01-25-2025 Tobacco use panel [facility] Work Phone: Start: 1965 Sex Assigned At Not on file [facility] Work Phone: Start: 07-07-2023 End: 07-29-2024 Exposure to SARS-CoV-2 (event) Not sure [facility] Start: 05-18-2022 Sex Male [facility] NEGATED: Highlighted row - - PQ-Qzdhssh-Ntplwoj Work Phone: Medical Equipment Procedure Code Equipment Code Equipment Origin al Text Equipment Identifier Dates [id number] Start: 09-28-2022 USE TO DRAW UP I M TESTOSTERONE INJECTIONS [id number] Start: 01-07-2025 Functional Status Date Assessment Result Facility 01-25-2025 Patient Health Questionnaire 2 item (PHQ-2) [Reported] [facility] Work Phone: NEGATED: Highlighted row Functional performance Functional status health issues are not documented Disease [facility] Work Phone: Mental Status Date Assessment Result Facility NEGATED: Highlighted row Cognitive function [Interpretation] Cognitive status health issues are not documented Disease [facility] Work Phone: Clinical Notes 06-24-2020 to 01-25-2025 Assessment & Plan Note - MARGRET Jarvis - 01/25/2025 11:06 AM EDTAssessment & Plan Note - MARGRET Jarvis - 01/25/2025 11:06 AM EDTDaMARGRET Orozco - 01/25/2025 10:00 AM EDT Note Date & Type Note Facility 01-25-2025 Evaluation + Plan note Associated Problem(s): Erectile dysfunction Stable. Refill sildenafil [facility] Work Phone: 01-25-2025 Evaluation + Plan note Associated Problem(s): BPH with obstruction/lower urinary tract symptoms PSA values reviewed. See note under hypogonadism diagnosis. [facility] Work Phone: 01-25-2025 Miscellaneous Notes Associate d Problem(s): Erectile dysfunction Stable. Refill sildenafil Associated Problem(s): BPH with obstruction/lower urinary tract symptoms PSA values reviewed. See note under hypogonadism diagnosis. Associated Problem(s): Hypogonadism in male Lab values reviewed. Questions answered. Plan to repeat testosterone, PSA and H&H in June. Encouraged fluids. Also discussed that he should wait to get labs drawn until mid to end of the week after his injection, still can obtain test results in the morning between 8 and 10 AM. Plan for follow-up in 6 months. Testosterone injection refilled. OARRS reviewed. documented in this encounter [facility] Work Phone: 01-25-2025 Evaluation + Plan note Associated Problem(s): Hypogonadism in male Lab values reviewed. Questions answered. Plan to repeat testosterone, PSA and H&H in June. Encouraged fluids. Also discussed that he should wait to get labs drawn until mid to end of the week after his injection, still can obtain test results in the morning between 8 and 10 AM. Plan for follow-up in 6 months. Testosterone injection refilled. OARRS reviewed. [facility] Work Phone: 01-25-2025 History of Presen t illness Narrative Images from the original note were not included. [facility] Note Subjective Patient ID: Moises Barney is a 59 y.o. male who presents for Follow-up (PSA). History of Present Illness Moises is a 59 y.o. male who presents for chronic history of hypogonadism. Saw Dr. Alfredo back in July 2024. Most recent PSA 2.65 on 01/18/2025, 2.00 on 07/20/24, 2.32 on 01/06/2024. Most recent testosterone 240.9 on 01/22/2025, 1797 on 07/30/2024, 01/16 on 07/17. Most recent hemoglobin and hematocrit 18.1/53.5 on 01/18/2025, 17.6/52.5 on 07/20/2024. Patient states that he had his labs drawn the day after his injection back in July 2024 causing the elevated testosterone level. Does admit to feeling decreased energy and decreased libido on current testosterone level. Missed 2 weeks of testosterone due to lack of refill. Chronic BPH symptoms are mild and stable. Denies urgency, frequency, dysuria or hematuria. Nocturia x 1. ED is mild and stable on sildenafil. Requesting refill. No family history of prostate CA. Past Medical & Surgical History Medical History[1] Surgical History[2] Review of Systems: A 12 point review of systems was completed and otherwise negative unless noted in the HPI Physical Exam General: Well developed, well nourished, alert and cooperative, appears in no acute distress Eyes: Non-injected conjunctiva, sclera clear, no proptosis Cardiac: Extremities are warm and well perfused. No edema, cyanosis or pallor. Lungs: Breathing is easy, non-labored. Speaking in clear and complete sentences. Normal diaphragmatic movement. Abdomen: soft NT with BSP, no CVA tenderness Genitourinary: Kidneys: non palpable bilat Bladder: non tender, non distended MSK: Ambulatory with steady gait, unassisted Neuro: alert and oriented to person, place and time Psych: Demonstrates good judgement and reason, without abnormal affect or abnormal behaviors. Skin: no obvious lesions, no rashes Objective LABS No results found for this visit on 01/25/25. Imaging Problem List Items Addressed This Visit Erectile dysfunction Current Assessment & Plan Stable. Refill sildenafil Relevant Medications sildenafil (Viagra) 100 mg tablet Hypogonadism in male Current Assessment & Plan Lab values reviewed. Questions answered. Plan to repeat testosterone, PSA and H&H in June. Encouraged fluids. Also discussed that he should wait to get labs drawn until mid to end of the week after his injection, still can obtain test results in the morning between 8 and 10 AM. Plan for follow-up in 6 months. Testosterone injection refilled. OARRS reviewed. Relevant Medications testosterone cypionate (Depo-Testosterone) 200 mg/mL injection Other Relevant Orders Hemoglobin and Hematocrit, Blood BPH with obstruction/lower urinary tract symptoms - Primary Current Assessment & Plan PSA values reviewed. See note under hypogonadism diagnosis. Relevant Orders Testosterone,Free and Total PSA Hemoglobin and Hematocrit, Blood MARGRET Jarvis 01/25/25 11:06 AM [1] History reviewed. No pertinent past medical history. [2] Past Surgical History: Procedure Laterality Date OTHER SURGICAL HISTORY 05/18/2019 Back surgery OTHER SURGICAL HISTORY 05/18/2019 Neck surgery OTHER SURGICAL HISTORY 05/18/2019 Ankle surgery OTHER SURGICAL HISTORY 05/18/2019 Vasectomy OTHER SURGICAL HISTORY 05/18/2019 Arm surgery OTHER SURGICAL HISTORY 05/18/2019 Vasectomy reversal OTHER SURGICAL HISTORY 05/18/2019 Leg surgery documented in this encounter [facility] Work Phone: 07-29-2024 History of Presen t illness Narrative Subjective Patient ID: Moises Barney is a 59 y.o. male. HPI Patient has chronic hx of hypogonadism....Patient was started back on IM injections on 04/15. He is doing 1ml/week and has felt stronger and more energetic. Patient states he I would be a spokesman for TRT ...Patient had labs drawn last week but results pending. PSA 07/18 was 2.0. Most recent labs on chart were done on 01/14. T level was >1500(right after injection), Hematocrit was 51.5, Hgb was 17.2, and PSA was 2.32. Prior Labs were done on 07/17 T level was 726. PSA 2.73, Estrogen was 92.6, Estradiol 43.5, Estrone 49.1. Previous labs were done 04/15 T level was 366(off replacement) ..Chronic BPH sx are mild and stable...No frequency and urgency.. Denies dysuria and hematuria.. Nocturia x1.. Caffeine does worsen LUT's. No medication for AAYUSH'TS. ED is mild. Sildenafil is helpful. Review of Systems Constitutional: Negative for chills and fever. HENT: Negative. Eyes: Negative. Respiratory: Negative for cough and shortness of breath. Cardiovascular: Negative for chest pain and leg swelling. Gastrointestinal: Negative for nausea. Endocrine: Negative. Genitourinary: Negative for difficulty urinating. Negative except for documented in HPI Allergic/Immunologic: Negative. Neurological: Alert & oriented X 3 Hematological: Denies blood thinners Psychiatric/Behavioral: Negative. Objective Physical Exam Vitals and nursing note reviewed. Pulmonary: Effort: Pulmonary effort is normal. Abdominal: Palpations: Abdomen is soft. Tenderness: There is no abdominal tenderness. Genitourinary: Comments: Kidneys non palpable bilaterally Bladder non palpable or tender Neurological: Mental Status: He is alert. Assessment/Plan Diagnoses and all orders for this visit: Erectile dysfunction, unspecified erectile dysfunction type Hypogonadism in male Nocturia BPH with obstruction/lower urinary tract symptoms All available PSA values reviewed, Options discussed. Questions answered. Diet changes for prostate health discussed and educational information given. Pros/Cons of prostate health supplements discussed. Treatment options for LUTS reviewed Discussed timed voiding. Discussed fluid and caffeine intake Treatment options for ED reviewed. Sildenafil refills authorized Lifestyle change to help prevent UTIs discussed. Encouraged fluid intake. pros/cons of Testosterone replacement reviewed. Replacement options discussed. Questions answered. Available levels reviewed. T Rx refilled F/U 6 months with labs documented in this encounter [facility] Work Phone: 07-17-2023 History of Presen t illness Narrative Subjective Patient ID: Moises Barney is a 58 y.o. male. HPI Patient has chronic hx of hypogonadism....Patient was started back on IM injections on 04/15. He is doing 1ml/week...Most recent labs were done on 07/17 T level was 726. PSA 2.73, Estrogen was 92.6, Estradiol 43.5, Estrone 49.1. Previous labs were done 04/15 T level was 366(off replacement) ..Previous labs were done 01/13 Testosterone was 40, H&H 17.5 and 52.9, PSA 1.14... Previous labs 07/16, Testosterone was 230, PSA was 1.38, HCT was 50.9, HGB was 17.0... prior was 12/13. T level was 1116. Hct was 53.4, Hgb was 17.5, and PSA was 1.56. Prior Labs were done on 06/2021. T level was 665, HCT was 51.4, HGB was 17.1, and PSA was 1.44. Chronic BPH sx are mild and stable...No frequency and urgency.. Denies dysuria and hematuria.. Nocturia x1.. Caffeine does worsen LUT's. No medication for AAYUSH'TS. ED is mild. Sildenafil is helpful Review of Systems Constitutional: Negative for chills and fever. HENT: Negative. Eyes: Negative. Respiratory: Negative for cough and shortness of breath. Cardiovascular: Negative for chest pain and leg swelling. Gastrointestinal: Negative for nausea. Endocrine: Negative. Genitourinary: Negative for difficulty urinating. Negative except for documented in HPI Allergic/Immunologic: Negative. Neurological: Alert & oriented X 3 Hematological: Denies blood thinners Psychiatric/Behavioral: Negative. Objective Physical Exam Vitals and nursing note reviewed. Constitutional: General: He is not in acute distress. Appearance: Normal appearance. Pulmonary: Effort: Pulmonary effort is normal. Abdominal: Tenderness: There is no abdominal tenderness. Genitourinary: Comments: Kidneys non palpable bilaterally Bladder non palpable or tender Scrotum no mass, No hydrocele Epididymis- No spermatocele. Non Tender. Testicles: No mass. Symmetric Urethra: No discharge Penis within normal limits... No lesions. CIrcumcised Prostate - declined due to Hemerhoids Neurological: Mental Status: He is alert. Assessment/Plan Diagnoses and all orders for this visit: Erectile dysfunction, unspecified erectile dysfunction type Hypogonadism in male Nocturia BPH with obstruction/lower urinary tract symptoms All available PSA values reviewed, Options discussed. Questions answered. PSA higher but has fluctuated over the years Diet changes for prostate health discussed and educational information given. Pros/Cons of prostate health supplements discussed. Treatment options for LUTS reviewed Discussed timed voiding. Discussed fluid and caffeine intake Treatment options for ED reviewed. Lifestyle change to help prevent UTIs discussed. Encouraged fluid intake. pros/cons of Testosterone replacement reviewed. Replacement options discussed. Questions answered. Available levels reviewed. Testosterone Rx given Discussed Aromatase inhibitors F/U with Labs 6 months documented in this encounter [facility] Work Phone: 07-16-2022 History of Presen t illness Narrative Patient has chronic hx of hypogonadism....Patient is doing 1ml q weekly injections. . Most recent labs were done on 01/13 Testosterone was 40, H&H 17.5 and 52.9, PSA 1.14... Previous labs 07/16, Testosterone was 230, PSA was 1.38, HCT was 50.9, HGB was 17.0... prior was 12/13. T level was 1116. Hct was 53.4, Hgb was 17.5, and PSA was 1.56. Prior Labs were done on 06/2021. T level was 665, HCT was 51.4, HGB was 17.1, and PSA was 1.44. Chronic BPH sx are mild and stable...No frequency and urgency.. Denies dysuria and hematuria.. Nocturia x1.. Caffeine does worsen LUT's. No medication for AAYUSH'TS. ED is mild. Sildenafil is helpful [id number] Work Phone: 12-13-2021 History of Presen t illness Narrative Patient has chronic hx of hypogonadism....Patient is doing 1ml q weekly injections. . Most recent labs were done on 12/13. T level was 1116. Hct was 53.4, Hgb was 17.5, and PSA was 1.56. Prior Labs were done on 06/2021. T level was 665, HCT was 51.4, HGB was 17.1, and PSA was 1.44. Chronic BPH sx are mild and stable...No frequency and urgency.. Denies dysuria and hematuria.. Nocturia x1.. Caffeine does worsen LUT's. No medication for AAYUSH'TS. ED is mild. Sildenafil is helpful [employer] Work Phone: 06-24-2021 History of Presen t illness Narrative Patient has a Chronic hx of hypogonadism....Patient is doing 1ml q weekly. Most recent labs were done on 06/2021. T level was 665, HCT was 51.4, HGB was 17.1, and PSA was 1.44. Prior Labs were done 01/11, T Level was 240, PSA was 1.33, Hgb was 17.7, and Hct was 52.2. Chronic BPH sx are mild and stable...No frequency and urgency.. Denies dysuria and hematuria.. Nocturia x1.. Caffeine does worsen LUT's. No medication for AAYUSH'TS. ED is mild. Sildenafil is helpful [employer] Work Phone: 06-24-2021 History of Presen t illness Narrative Patient has chronic hx of hypogonadism....Patient is doing 1ml q weekly injections. . Most recent labs were done on 07/16 , PSA was 1.38, HCT was 50.9, HGB was 17.0..MOST recent T level is still pending. prior was 12/13. T level was 1116. Hct was 53.4, Hgb was 17.5, and PSA was 1.56. Prior Labs were done on 06/2021. T level was 665, HCT was 51.4, HGB was 17.1, and PSA was 1.44. Chronic BPH sx are mild and stable...No frequency and urgency.. Denies dysuria and hematuria.. Nocturia x1.. Caffeine does worsen LUT's. No medication for AAYUSH'TS. ED is mild. Sildenafil is helpful [employer] Work Phone: 06-24-2020 History of Presen t illness Narrative Patient presents to the office today for a 6 MO F/U w/Labs. Patient has a Chronic hx of hypogonadism....Patient is doing 1ml q weekly. Most recent labs were done on 01/11, T Level was 240, PSA was 1.33, Hgb was 17.7, and Hct was 52.2. .Prior T level was 177.. Prior on 06/2020. Prior PSA was 1.43...Chronic BPH sx are mild and stable...No frequency and urgency.. Denies dysuria and hematuria.. Nocturia x1.. Caffeine does worsen LUT's. [id number] Work Phone: 06-24-2020 History of Presen t illness Narrative Patient presents to the office today for a 6 MO F/U w/Labs. Patient has a Chronic hx of hypogonadism....Patient is doing 1ml q weekly. Most recent labs were done on 01/11, T Level was 240, PSA was 1.33, Hgb was 17.7, and Hct was 52.2. .Prior T level was 177.. Prior on 06/2020. Prior PSA was 1.43...Chronic BPH sx are mild and stable...No frequency and urgency.. Denies dysuria and hematuria.. Nocturia x1.. Caffeine does worsen LUT's. [id number] DO Work Phone: 06-24-2020 History of Presen t illness Narrative Patient is here for 4 month f/u. Patient has a Chronic hx of hypogonadism....Patient is doing 1ml q weekly. Most recent T level and HCT/HGB are pending. .Prior T level was 177.. Most recent PSA was 1.01 on 06/2020. Prior PSA was 1.43...Chronic BPH sx are mild and stable...No frequency and urgency.. Denies dysuria and hematuria.. Nocturia x1.. Caffeine does worsen LUT's.Controlled substance agreement on 07/04/2020I have personally reviewed the OARRS report for this patient. This report is scanned into the electronic medical record. I have considered the risks of abuse, dependence, addiction and diversion. [id number] Work Phone: Evaluation note Diagnosis Erectile dysfunction, unspecified erectile dysfunction type Hypogonadism in male Nocturia BPH with obstruction/lower urinary tract symptoms documented in this encounter [facility] Work Phone: Evaluation note* Diagnosis Erectile dysfunction, unspecified erectile dysfunction type Hypogonadism in male Nocturia BPH with obstruction/lower urinary tract symptoms documented in this encounter [employer] [facility] Work Phone: Evaluation note* Diagnosis BPH with obstruction/lower urinary tract symptoms- Primary Hypogonadism in male Erectile dysfunction, unspecified erectile dysfunction type documented in this encounter [facility] Work Phone: Family History No Family History Records Found Mother Name Dates Details Family history of Medical hi story unknown(V49.89, Z78.9) Status:Active Father Name Dates Details Family history of Medical hi story unknown(V49.89, Z78.9) Status:Active Mother Name Dates Details Family history of Medical hi story unknown(V49.89, Z78.9) Status:Active Father Name Dates Details Family history of Medical hi story unknown(V49.89, Z78.9) Status:Active Unknown Family Member Name Dates Details Medical history unknown: Mot her, Father Status:Active Unknown Family Member Name Dates Details Medical history unknown: Mot her, Father Status:Active Unknown Family Member Name Dates Details Medical history unknown: Mot her, Father Status:Active Unknown Family Member Name Dates Details Medical history unknown: Mot her, Father Status:Active Unknown Family Member Name Dates Details Medical history unknown: Mot her, Father Status:Active Unknown Family Member Name Dates Details Medical history unknown: Mot her, Father Status:Active Unknown Family Member Name Dates Details Medical history unknown: Mot her, Father Status:Active Unknown Family Member Name Dates Details Medical history unknown: Mot her, Father Status:Active Unknown Family Member Name Dates Details Medical history unknown: Mot her, Father Status:Active Unknown Family Member Name Dates Details Medical history unknown: Mot her, Father Status:Active Unknown Family Member Name Dates Details Medical history unknown: Mot her, Father Status:Active Unknown Family Member Name Dates Details Medical history unknown: Mot her, Father Status:Active Unknown Family Member Name Dates Details Medical history unknown: Mot her, Father Status:Active Unknown Family Member Name Dates Details Medical history unknown: Mot her, Father Status:Active Unknown Family Member Name Dates Details Medical history unknown: Mot her, Father Status:Active Chief Complaint 6 MO F/U w/Labs6 MO F/U w/Labs6 MO F/U w/Labs6 mo f/u w LABS6 mo w/ labs6 mo w/ labs6 mo w/ labs6 mo w/ labs Summary Purpose Advance Directives No Advanced Directives Records FoundNo Advanced Directives Records FoundNo Advanced Directives Records FoundNo Advanced Directives Records FoundNo Advanced Directives Records FoundNo Advanced Directives Records FoundNo Advanced Directives Records Found Additional Source Comments (unrecognized sect ion and content) No Status Records FoundNo Status Records FoundNo Status Records FoundNo Status Records FoundNo Status Records FoundNo Status Records FoundNo Status Records Found INFORMATION SOURCE (unrecogn ized section and content) DATE CREATED AUTHOR 06/28/2021 [facility] DATE CREATED AUTHOR AUTHOR'S ORGANIZ ATION 01/12/2022 [facility] ([place]) DATE CREATED AUTHOR AUTHOR'S ORGANIZ ATION 01/03/2023 [facility] DATE CREATED AUTHOR AUTHOR'S ORGANIZ ATION 01/03/2023 [employer] DATE CREATED AUTHOR AUTHOR'S ORGANIZ ATION 02/06/2025 [facility] DATE CREATED AUTHOR AUTHOR'S ORGANIZ ATION 04/21/2025 [facility] DATE CREATED AUTHOR AUTHOR'S ORGANIZ ATION 05/01/2025 [facility] Reason for Visit (unrecogniz ed section and content) Reason Comments 3 month with labs Reason Comments Follow-up Patient here for fol low-up. He voices no complaints at this time. Reason Comments Follow-up PSA FOR RECORDS PERTAINING TO PATIENTS WHO ARE OR HAVE BEEN ENROLLED IN A CHEMICAL DEPENDENCY/SUBSTANCEABUSE PROGRAM, SOME INFORMATION MAY BE OMITTED. This clinical summary was aggregated from multiple sources. Caution should be exercised in using it in the provision of clinical care. This summary normalizes information from multiple sources, and as a consequence, information in this document may materially change the coding, format and clinical context of patient data. In addition, data may be omitted in some cases. CLINICAL DECISIONS SHOULD BE BASED ON THE PRIMARY CLINICAL RECORDS. [facility] [employer] [facility]. provides no warranty or guarantee of the accuracy or completeness of information in this document.
== END | disposition home or self-care (01) ==
PROVIDERS: PCP Nurse Practitioner Family; Referring Provider Student in an Organized Health Care Education/Training Program; Visit Provider Student in an Organized Health Care Education/Training Program
DX: M54.16 Radiculopathy, lumbar region (principal); M51.362 Other intervertebral disc degeneration, lumbar region with discogenic back pain and lower extremity pain; Z98.890 Other specified postprocedural states
CPT/HCPCS: 72158; A9575